=== PATIENT | female | born 1960 | race African-American/Black ===

== ENCOUNTER 2019-03-06 11:37 | Inpatient (IN) | payer OTHER ==
[2019-03-06 12:31] VITALS: BMI 30.9
--- NOTE | 2019-03-06 13:45 | HP ---
CIWA Score Nausea/Vomitin-Int. Nausea w/Dry Heave Muscle Tremors: 2 Anxiety: 5 Agitation: 2 Paroxysmal Sweats: 3 Orientation: 0-Oriented Tacttile Disturbances: 2-Mild Itch/Numbness/Burn Auditory Disturbances: 0-None Visual Disturbances: 1-Very Mild Sensitivity Headache: 2-Mild CIWA-Ar Total Score: 21 - Admission Criteria OASAS Guidelines: Admission for Medically Managed Detox: Requires at least one of the followin. CIWA greater than 12 2. Seizures within the past 24 hours 3. Delirium tremens within the past 24 hours 4. Hallucinations within the past 24 hours 5. Acute intervention needed for co occurring medical disorder 6. Acute intervention needed for co occurring psychiatric disorder 7. Severe withdrawal that cannot be handled at a lower level of care (continued vomiting, continued diarrhea, abnormal vital signs) requiring intravenous medication and/or fluids 8. Admitting History and Physical - Admission Chief Complaint: "I want to stop drinking and stop smoking." History of Present Illness: 58 year old female with history of alcohol dependence and crack use disorder, nicotine dependence with withdrawals. She is using 1 litre of vodka per day and beers , last drank this morning at 2: 30AM. 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 She uses marijuana at least $100 daily and last used this morning. She started smoking it at age 18. She uses crack/ccaine at age 29 last used 2 days ago and aout 2x/month. She also smokes ciggarettes at age [age] years old. She has tried heroin but last time use was 10 years ago. PMH: HTN< Asthma, MVP, Seasonal allergies. Psurg: CHolecystectomy, Umbilical Hernia repair, foot surgery, many miscarriages with D&C Psych: Bipolar, Schizophrenia. Zyprexa ambien, lamictal, gabapentin but not consistently. Patient resides in housing in the [place]. History Source: Patient Limitations to Obtaining History: No Limitations - Past Medical History ...: No - Past Surgical History Past Surgical History: Yes: Cholecystectomy, Hernia Repair - Advance Directives Advance Directives: No: Living Will, Health Care Proxy, DNR - Smoking History Smoking history: Former smoker Have you smoked in the past 12 months: No If you are a former smoker, when did you quit?: 2017 - Alcohol/Substance Use Hx Alcohol Use: Yes (1 litre of vodka) History of Substance Use: reports: Marijuana - Social History Usual Living Arrangement: Yes: Alone Do you think of yourself as: Straight/Heterosexual ADL: Independent Occupation: unemployed disabled History of Recent Travel: No Admission ROS [facility] Allergies/Adverse Reactions: Allergies Allergy/AdvReac Type Severity Reaction Status Date / Time apple Allergy Severe Verified 03/06/19 12:35 Penicillins Allergy Severe Verified 03/06/19 12:35 Exam Limitations: No Limitations - Ebola screening Have you traveled outside of the country in the last 21 days: No Have you had contact with anyone from an Ebola affected area: No Have you been sick,other than usual withdrawal symptoms: No Do you have a fever: No - Review of Systems Constitutional: Chills EENT: reports: No Symptoms Reported Respiratory: reports: No Symptoms reported Cardiac: reports: No Symptoms Reported GI: reports: No Symptoms Reported : reports: No Symptoms Reported Musculoskeletal: reports: No Symptoms Reported Integumentary: reports: No Symptoms Reported Neuro: reports: Headache Endocrine: reports: No Symptoms Reported Hematology: reports: No Symptoms Reported Psychiatric: reports: Judgement Intact, Mood/Affect Appropiate, Orientated x3 Other Systems: Reviewed and Negative Patient History - Patient Medical History Hx Asthma: Yes Hx Chronic Obstructive Pulmonary Disease (COPD): No Hx Cardiac Disorders: No Hx Hypertension: Yes (on meds.) Hx Seizures: No Hx Diabetes: No Hx Gastrointestinal Disorders: No Hx Genitourinary Disorders: No Hx Sexually Transmitted Disorders: Yes Hx Renal Disease (ESRD): No Hx Depression: Yes Hx Suicide Attempt: Yes (Tried to cut wrists in 2016) Hx Schizophrenia: No - Patient Surgical History Past Surgical History: No - PPD History Previous Implant?: Yes Documented Results: Negative w/o proof Implanted On Prior [facility] Admission?: No - Reproductive History Patient : No - Smoking Cessation Smoking history: Former smoker Have you smoked in the past 12 months: No If you are a former smoker, when did you quit?: 2017 Hx Chewing Tobacco Use: No Initiated information on smoking cessation: No - Substances abused Alcohol Substance route: Oral Frequency: Daily Amount used: 1 liter vodka/ 6pk and up of beer Age of first use: 18 Date of last use: 03/06/19 Marijuana/Hashish Substance route: Inhalation Frequency: Daily Amount used: 10 blunts Age of first use: 18 Date of last use: 03/06/19 Admission Physical Exam [facility] - Vital Signs Vital Signs: Vital Signs - 24 hr 03/06/19 03/06/19 12:23 12:35 Temperature 98.6 F 98.6 F Pulse Rate 91 H 91 H Respiratory 18 18 Rate Blood Pressure 138/89 138/89 - Physical General Appearance: Yes: No Apparent Distress, Nourished, Appropriately Dressed HEENTM: Yes: EOMI, Hearing grossly Normal, Normal ENT Inspection, Normocephalic , Normal Voice, YADIRA, Pharynx Normal, Tm's normal (edentulous upper jaw and also stye over right upper lid) Respiratory: Yes: Chest Non-Tender, Lungs Clear, Normal Breath Sounds, No Respiratory Distress, No Accessory Muscle Use Neck: Yes: No masses,lesions,Nodules, Supple Breast: Yes: Breast Exam Deferred Cardiology: Yes: Regular Rhythm, S1, S2, Tachycardia Abdominal: Yes: Non Tender, Flat, Increased Bowel Sounds Genitourinary: Yes: Within Normal Limits Back: Yes: Normal Inspection Musculoskeletal: Yes: full range of Motion, Gait Steady, Pelvis Stable Extremities: Yes: Normal Capillary Refill, Normal Inspection, Normal Range of Motion, Non-Tender Neurological: Yes: volunteer patient representative II-XII NML intact, Fully Oriented, Alert, Motor Strength 5/5, Normal Mood/Affect, Normal Response Integumentary: Yes: Normal Color, Warm, Rash (intertrigenous under breast, petechial.) Lymphatic: Yes: Within Normal Limits - Diagnostic (1) Alcohol dependence with withdrawal Current Visit: Yes Status: Acute (2) Varicose veins of bilateral lower extremities with other complications Current Visit: Yes Status: Acute (3) Hypertension Current Visit: Yes Status: Acute (4) Rash Current Visit: Yes Status: Acute (5) Asthma Current Visit: Yes Status: Acute (6) Mitral valve prolapse Current Visit: Yes Status: Acute (7) Environmental allergies Current Visit: Yes Status: Acute Cleared for Admission [facility] - Detox or Rehab [facility] Level of Care: Medically Managed Detox Regimen/Protocol: Librium Claeared for Rehab Admission: No Screened but not Admitted - Documentation of Visit Screened but not Admitted: No Breathalyzer - Breathalyzer Breathalyzer: 0 (last drink was early this morning) Urine Drug Screen - Test Device Lot number: [id number] Expiration date: 12/30/20 - Control Is test valid?: Yes - Results Drug screen NEGATIVE: No Urine drug screen results: THC-Marijuana Inpatient Rehab Admission - Rehab Decision to Admit Inpatient rehab admission?: No
[2019-03-06] MEDS ORDERED: MAG HYDROX/AL HYDROX/SIMETH 30 ML UNIT-DOSE CUP PO PRN (13:55)
[2019-03-06] MEDS ORDERED: MAGNESIUM HYDROX 2400MG/30ML ORAL SUSPENSION 30 ML CUP PO PRN (13:55)
[2019-03-06] MEDS ORDERED: chlordiazePOXIDE HCL 25 MG CAPSULE PO PRN (13:55)
[2019-03-06] MEDS ORDERED: IBUPROFEN 400 MG TABLET (FP) PO PRN (13:55)
[2019-03-06] MEDS ORDERED: MENTHOL/PHENOL 1 EACH UD MM PRN (13:55)
[2019-03-06] MEDS ORDERED: MAGNESIUM CITRATE 300 ML BOTTLE PO PRN (13:55)
[2019-03-06] MEDS ORDERED: ACETAMINOPHEN 325 MG TABLET (FP) PO PRN ×2 (13:55)
[2019-03-06] MEDS ORDERED: MELATONIN 5 MG TABLETS PO PRN (13:55)
[2019-03-06] MEDS ORDERED: ALBUTEROL SO4 8 GM HFA INHALER IH PRN (13:57)
[2019-03-06] MEDS ORDERED: BUDESONIDE/FORMETEROL FUMARATE 80/4.5 mcg INHALER IH SCH (14:00)
[2019-03-06] MEDS ORDERED: COLLOIDAL OATMEAL 1 BAR EACH TP PRN (14:03)
[2019-03-06] MEDS: GABAPENTIN 100 MG CAPSULE PO SCH ×2 (15:27→22:10)
[2019-03-06] MEDS: ASPIRIN 81 MG CHEWABLE TABLETS PO SCH (15:27)
[2019-03-06] MEDS: PANTOPRAZOLE 20 MG TABLET PO SCH (15:28)
[2019-03-06] MEDS: ARTIFICIAL TEARS (POLYVINYL ALCOHOL) OPTH DROPS OS SCH ×3 (15:28→22:13)
[2019-03-06] MEDS: amLODIPine BESYLATE 10 MG TABLET (FP) PO SCH (15:28)
[2019-03-06] MEDS: LORATADINE 10 MG TABLET PO SCH (15:28)
[2019-03-06] MEDS: BISMUTH SUBSALICYLATE 262 MG/15 ML BTL PO PRN (15:38)
[2019-03-06] MEDS: lamoTRIgine 100 MG TABLET PO SCH (16:07)
[2019-03-06] MEDS: EMTRICITABINE 200MG/TENOFOVIR 300MG PO SCH (16:07)
[2019-03-06] MEDS: chlordiazePOXIDE HCL 25 MG CAPSULE PO SCH ×2 (18:25→22:11)
[2019-03-06] MEDS: VITAMINS A AND D TOPICAL OINTMENT 60 GM TUBE TP SCH (18:25)
[2019-03-06] MEDS: OLANZapine 7.5 MG TABLET PO SCH (22:11)
[2019-03-06] MEDS: THIAMINE HCL 100 MG TABLET (FP) PO SCH (22:11)
[2019-03-06] MEDS: MONTELUKAST NA 10 MG TABLET PO SCH (22:11)
[2019-03-06] MEDS: CLOTRIMAZOLE 1% CREAM 15 GM TUBE TP SCH (22:13)
[2019-03-06] MEDS: BUDESONIDE/FORMETEROL FUMARATE 80/4.5 mcg INHALER IH SCH (22:13)
[2019-03-07] MEDS: VITAMINS A AND D TOPICAL OINTMENT 60 GM TUBE TP SCH ×4 (03:08→17:45)
[2019-03-07] MEDS: GABAPENTIN 100 MG CAPSULE PO SCH ×3 (06:48→21:15)
[2019-03-07] MEDS: chlordiazePOXIDE HCL 25 MG CAPSULE PO SCH ×4 (06:48→22:27)
[2019-03-07 10:16] LABS: HEMATOCRIT 37.7 % (32.4-45.2); MCH 35.6 pg (25.7-33.7); MCHC 34.4 g/dl (32.0-36.0); MEAN CELL VOLUME 103.6 fl (80-96); MEAN PLT VOLUME 8.5 fl (7.5-11.1); PLATELET COUNT 241 K/MM3 (134-434); RBC 3.64 M/mm3 (3.60-5.2); RDW 12.7 % (11.6-15.6); WHITE BLOOD COUNT 4.4 K/mm3 (4.0-10.0)
[2019-03-07 10:23] LABS: ALBUMIN 3.2 g/dl (3.4-5.0); BILIRUBIN,TOTAL 0.5 mg/dL (0.2-1); BLOOD UREA NITROGEN 7.7 mg/dL (7-18); CALCIUM 9.1 mg/dL (8.5-10.1); CREATININE 0.7 mg/dL (0.55-1.3); POTASSIUM 3.7 mmol/L (3.5-5.1); TOT PROT 6.9 g/dl (6.4-8.2)
[2019-03-07] MEDS: EMTRICITABINE 200MG/TENOFOVIR 300MG PO SCH (10:30)
[2019-03-07] MEDS: PANTOPRAZOLE 20 MG TABLET PO SCH (10:30)
[2019-03-07] MEDS: BUDESONIDE/FORMETEROL FUMARATE 80/4.5 mcg INHALER IH SCH ×2 (10:31→21:16)
[2019-03-07] MEDS: ASPIRIN 81 MG CHEWABLE TABLETS PO SCH (10:31)
[2019-03-07] MEDS: LORATADINE 10 MG TABLET PO SCH (10:31)
[2019-03-07] MEDS: amLODIPine BESYLATE 10 MG TABLET (FP) PO SCH (10:31)
[2019-03-07] MEDS: ARTIFICIAL TEARS (POLYVINYL ALCOHOL) OPTH DROPS OS SCH ×4 (10:32→21:20)
[2019-03-07] MEDS: CLOTRIMAZOLE 1% CREAM 15 GM TUBE TP SCH ×2 (10:32→21:21)
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
[2019-03-07] MEDS: PRENATAL VITAMINS W/ FOLIC ACID TABLET (FP) PO SCH (10:43)
--- NOTE | 2019-03-07 12:42 | PN ---
S CIWA - CIWA Score Nausea/Vomitin-No Nausea/No Vomiting Muscle Tremors: 3 Anxiety: 3 Agitation: 3 Paroxysmal Sweats: 3 Orientation: 0-Oriented Tacttile Disturbances: 0-None Auditory Disturbances: 0-None Visual Disturbances: 0-None Headache: 0-None Present CIWA-Ar Total Score: 12 [facility] Progress Note (SOAP) Subjective: sweats tired interrupted sleep Objective: 03/07/19 12:41 Vital Signs Temperature 97.7 F 03/07/19 10:01 Pulse Rate 70 03/07/19 10:01 Respiratory Rate 18 03/07/19 10:01 Blood Pressure 128/92 03/07/19 10:01 O2 Sat by Pulse Oximetry (%) Laboratory Tests 03/07/19 03/07/19 03/07/19 08:30 08:30 08:30 WBC 4.4 RBC 3.64 Hgb 13.0 Hct 37.7 MCV 103.6 H MCH 35.6 H MCHC 34.4 RDW 12.7 Plt Count 241 MPV 8.5 Sodium 142 Potassium 3.7 Chloride 108 H Carbon Dioxide 29 Anion Gap 5 L BUN 7.7 Creatinine 0.7 Est GFR (CKD-EPI)AfAm 112.26 Est GFR (CKD-EPI)NonAf 96.86 Random Glucose 91 Calcium 9.1 Total Bilirubin 0.5 AST 35 ALT 44 Alkaline Phosphatase 71 Total Protein 6.9 Albumin 3.2 L HIV 1&2 Antibody Screen Negative HIV P24 Antigen Negative aaox3 ambulating no acute distress Assessment: 03/07/19 12:41 withdrawal sx Plan: continue detox increase fluids
[2019-03-07] MEDS: lamoTRIgine 100 MG TABLET PO SCH (14:29)
[2019-03-07] MEDS: THIAMINE HCL 100 MG TABLET (FP) PO SCH (21:15)
[2019-03-07] MEDS: MONTELUKAST NA 10 MG TABLET PO SCH (21:16)
[2019-03-07] MEDS: OLANZapine 7.5 MG TABLET PO SCH (22:25)
[2019-03-07] MEDS: METHOCARBAMOL 500 MG TABLET PO PRN (22:25)
[2019-03-08] MEDS: VITAMINS A AND D TOPICAL OINTMENT 60 GM TUBE TP SCH ×4 (00:05→21:43)
[2019-03-08] MEDS: chlordiazePOXIDE HCL 25 MG CAPSULE PO SCH ×4 (06:39→22:13)
[2019-03-08] MEDS: GABAPENTIN 100 MG CAPSULE PO SCH ×3 (06:39→21:45)
[2019-03-08] MEDS: ASPIRIN 81 MG CHEWABLE TABLETS PO SCH (10:34)
[2019-03-08] MEDS: ARTIFICIAL TEARS (POLYVINYL ALCOHOL) OPTH DROPS OS SCH ×4 (10:34→22:13)
[2019-03-08] MEDS: LORATADINE 10 MG TABLET PO SCH (10:34)
[2019-03-08] MEDS: amLODIPine BESYLATE 10 MG TABLET (FP) PO SCH (10:34)
[2019-03-08] MEDS: PANTOPRAZOLE 20 MG TABLET PO SCH (10:34)
[2019-03-08] MEDS: PRENATAL VITAMINS W/ FOLIC ACID TABLET (FP) PO SCH (10:34)
[2019-03-08] MEDS: BUDESONIDE/FORMETEROL FUMARATE 80/4.5 mcg INHALER IH SCH ×2 (10:35→21:45)
[2019-03-08] MEDS: CLOTRIMAZOLE 1% CREAM 15 GM TUBE TP SCH ×2 (10:35→21:44)
--- NOTE | 2019-03-08 17:32 | PN ---
[facility] CIWA - CIWA Score Nausea/Vomitin-No Nausea/No Vomiting Muscle Tremors: 5 Anxiety: 4-Mod. Anxious/Guarded Agitation: 3 Paroxysmal Sweats: 1-Minimal Palms Moist Orientation: 0-Oriented Tacttile Disturbances: 0-None Auditory Disturbances: 0-None Visual Disturbances: 0-None Headache: 0-None Present CIWA-Ar Total Score: 13 BHS Progress Note (SOAP) Subjective: c/o anxiety, tremors and alcohol cravings. Objective: 03/08/19 17:30 Vital Signs - 24 hr 03/07/19 03/07/19 03/08/19 17:53 21:48 00:30 Temperature 98.4 F 97.9 F Pulse Rate 86 79 Respiratory 18 18 18 Rate Blood Pressure 117/78 134/72 03/08/19 03/08/19 03/08/19 03:30 07:21 09:38 Temperature 97.9 F 98.4 F Pulse Rate 71 66 Respiratory 18 16 16 Rate Blood Pressure 125/70 117/78 03/08/19 13:45 Temperature 98.2 F Pulse Rate 102 H Respiratory 16 Rate Blood Pressure 129/77 Laboratory Tests 03/07/19 03/07/19 03/07/19 08:30 08:30 08:30 WBC 4.4 RBC 3.64 Hgb 13.0 Hct 37.7 MCV 103.6 H MCH 35.6 H MCHC 34.4 RDW 12.7 Plt Count 241 MPV 8.5 Sodium 142 Potassium 3.7 Chloride 108 H Carbon Dioxide 29 Anion Gap 5 L BUN 7.7 Creatinine 0.7 Est GFR (CKD-EPI)AfAm 112.26 Est GFR (CKD-EPI)NonAf 96.86 Random Glucose 91 Calcium 9.1 Total Bilirubin 0.5 AST 35 ALT 44 Alkaline Phosphatase 71 Total Protein 6.9 Albumin 3.2 L RPR Titer HIV 1&2 Antibody Screen Negative HIV P24 Antigen Negative 03/07/19 08:30 WBC RBC Hgb Hct MCV MCH MCHC RDW Plt Count MPV Sodium Potassium Chloride Carbon Dioxide Anion Gap BUN Creatinine Est GFR (CKD-EPI)AfAm Est GFR (CKD-EPI)NonAf Random Glucose Calcium Total Bilirubin AST ALT Alkaline Phosphatase Total Protein Albumin RPR Titer Nonreactive HIV 1&2 Antibody Screen HIV P24 Antigen Assessment: 03/08/19 17:31 MUNIRA w/s Plan: cont detox maintain safety increase po fluids
[2019-03-08] MEDS: BISMUTH SUBSALICYLATE 262 MG/15 ML BTL PO PRN (18:58)
[2019-03-08] MEDS: MONTELUKAST NA 10 MG TABLET PO SCH (21:45)
[2019-03-08] MEDS: THIAMINE HCL 100 MG TABLET (FP) PO SCH (21:45)
[2019-03-08] MEDS: hydrOXYzine PAMOATE 25 MG CAPSULE (FP) PO PRN (21:46)
[2019-03-08] MEDS: METHOCARBAMOL 500 MG TABLET PO PRN (21:46)
[2019-03-09] MEDS ORDERED: chlordiazePOXIDE HCL 10 MG CAPSULE PO PRN
[2019-03-09] MEDS: VITAMINS A AND D TOPICAL OINTMENT 60 GM TUBE TP SCH ×4 (00:10→17:34)
[2019-03-09] MEDS: chlordiazePOXIDE HCL 10 MG CAPSULE PO SCH ×4 (06:46→22:22)
[2019-03-09] MEDS: GABAPENTIN 100 MG CAPSULE PO SCH ×3 (06:48→22:22)
[2019-03-09] MEDS: ARTIFICIAL TEARS (POLYVINYL ALCOHOL) OPTH DROPS OS SCH ×4 (10:15→22:21)
[2019-03-09] MEDS: BUDESONIDE/FORMETEROL FUMARATE 80/4.5 mcg INHALER IH SCH ×2 (10:15→22:22)
[2019-03-09] MEDS: LORATADINE 10 MG TABLET PO SCH (10:16)
[2019-03-09] MEDS: ASPIRIN 81 MG CHEWABLE TABLETS PO SCH (10:16)
[2019-03-09] MEDS: PANTOPRAZOLE 20 MG TABLET PO SCH (10:16)
[2019-03-09] MEDS: amLODIPine BESYLATE 10 MG TABLET (FP) PO SCH (10:16)
[2019-03-09] MEDS: PRENATAL VITAMINS W/ FOLIC ACID TABLET (FP) PO SCH (10:17)
[2019-03-09] MEDS: CLOTRIMAZOLE 1% CREAM 15 GM TUBE TP SCH (10:20)
--- NOTE | 2019-03-09 12:27 | PN ---
S Progress Note Note: Psychiatric nurse practitioner note: Call received in reference to patient not receiving zyprexa 7.5mg last night. Patient seen by Dr. Mireles. Dr. Mireles's note read and appreciated. Will order Zyprexa 7.5 mg HS.
--- NOTE | 2019-03-09 21:23 | PN ---
[facility] CIWA - CIWA Score Nausea/Vomitin-No Nausea/No Vomiting Muscle Tremors: None Anxiety: 3 Agitation: 2 Paroxysmal Sweats: No Perspiration Orientation: 1-Uncertain about Date Tacttile Disturbances: 0-None Auditory Disturbances: 0-None Visual Disturbances: 0-None Headache: 2-Mild CIWA-Ar Total Score: 8 BHS Progress Note (SOAP) Subjective: PATIENT ADMITTED FOR ETOH WITHDRAWAL SX C/O REDNESS TO RIGHT EYE, ANXIETY, FEELING RESTLESS, FORGETFUL WITH DATE - THOUGHT IT WAS SUNDAY- ORIENTED TO NAME AND PLACE Objective: 03/09/19 21:20 Laboratory Tests 03/07/19 03/07/19 03/07/19 08:30 08:30 08:30 WBC 4.4 RBC 3.64 Hgb 13.0 Hct 37.7 MCV 103.6 H MCH 35.6 H MCHC 34.4 RDW 12.7 Plt Count 241 MPV 8.5 Sodium 142 Potassium 3.7 Chloride 108 H Carbon Dioxide 29 Anion Gap 5 L BUN 7.7 Creatinine 0.7 Est GFR (CKD-EPI)AfAm 112.26 Est GFR (CKD-EPI)NonAf 96.86 Random Glucose 91 Calcium 9.1 Total Bilirubin 0.5 AST 35 ALT 44 Alkaline Phosphatase 71 Total Protein 6.9 Albumin 3.2 L RPR Titer HIV 1&2 Antibody Screen Negative HIV P24 Antigen Negative 03/07/19 08:30 WBC RBC Hgb Hct MCV MCH MCHC RDW Plt Count MPV Sodium Potassium Chloride Carbon Dioxide Anion Gap BUN Creatinine Est GFR (CKD-EPI)AfAm Est GFR (CKD-EPI)NonAf Random Glucose Calcium Total Bilirubin AST ALT Alkaline Phosphatase Total Protein Albumin RPR Titer Nonreactive HIV 1&2 Antibody Screen HIV P24 Antigen Vital Signs Temperature 98.2 F 03/09/19 18:46 Pulse Rate 85 03/09/19 18:46 Respiratory Rate 18 03/09/19 18:46 Blood Pressure 125/72 03/09/19 18:46 O2 Sat by Pulse Oximetry (%) PE ALERT AND ORIENTED X 2 SKIN WARM AND DRY +PERRLA, RIGHT LOWER EYE LID + INFLAMED STYE CAR S1S2 RESP CTA BL EXT FULL ROM, AMB AD ERNESTO ANXIOUS, RESTLESS Assessment: 03/09/19 21:22 ETOH WITHDRAWAL SX Plan: CONTINUE DETOX-TO COMPLETE TOMORROW EVENING POLY/TRIM TO OD X 5 DAYS ORAL FLUIDS ENCOURAGED MONITOR
[2019-03-09] MEDS: THIAMINE HCL 100 MG TABLET (FP) PO SCH (22:22)
[2019-03-09] MEDS: MONTELUKAST NA 10 MG TABLET PO SCH (22:22)
[2019-03-09] MEDS: OLANZapine 7.5 MG TABLET PO SCH (22:23)
[2019-03-10] MEDS: BACITRACIN/POLYMYXIN OPH OINT 3.5 GM TUBE OD SCH ×3 (00:14→14:57)
[2019-03-10] MEDS: VITAMINS A AND D TOPICAL OINTMENT 60 GM TUBE TP SCH ×4 (01:43→17:19)
[2019-03-10] MEDS: chlordiazePOXIDE HCL 10 MG CAPSULE PO SCH ×2 (06:17→17:18)
[2019-03-10] MEDS: GABAPENTIN 100 MG CAPSULE PO SCH ×3 (06:17→21:57)
[2019-03-10] MEDS: BUDESONIDE/FORMETEROL FUMARATE 80/4.5 mcg INHALER IH SCH ×2 (10:19→21:58)
[2019-03-10] MEDS: amLODIPine BESYLATE 10 MG TABLET (FP) PO SCH (10:20)
[2019-03-10] MEDS: PRENATAL VITAMINS W/ FOLIC ACID TABLET (FP) PO SCH (10:20)
[2019-03-10] MEDS: PANTOPRAZOLE 20 MG TABLET PO SCH (10:20)
[2019-03-10] MEDS: ASPIRIN 81 MG CHEWABLE TABLETS PO SCH (10:20)
[2019-03-10] MEDS: LORATADINE 10 MG TABLET PO SCH (10:20)
[2019-03-10] MEDS: ARTIFICIAL TEARS (POLYVINYL ALCOHOL) OPTH DROPS OS SCH ×4 (10:21→21:58)
[2019-03-10] MEDS: TRIAMCINOLONE ACET 0.1% OINT 15 GM TUBE TP SCH (11:54)
--- NOTE | 2019-03-10 13:23 | PN ---
S CIWA - CIWA Score Nausea/Vomitin-No Nausea/No Vomiting Muscle Tremors: 1-None Visible, but [place] Anxiety: 1-Mildly Anxious Agitation: 2 Paroxysmal Sweats: 1-Minimal Palms Moist Orientation: 0-Oriented Tacttile Disturbances: 0-None Auditory Disturbances: 0-None Visual Disturbances: 0-None Headache: 0-None Present CIWA-Ar Total Score: 5 BHS Progress Note (SOAP) Subjective: rash to eyelids I need my vaginal lubrication and steroid cream for my prolapse uterine otherwise i feel better Objective: 03/10/19 13:21 Vital Signs Temperature 97.7 F 03/10/19 09:28 Pulse Rate 86 03/10/19 09:28 Respiratory Rate 18 03/10/19 09:28 Blood Pressure 128/91 03/10/19 09:28 O2 Sat by Pulse Oximetry (%) aaox3 ambulating no acute distress Assessment: 03/10/19 13:22 mild withdrawals pt was allowed to go into her property and show me the medication she is required to use for her prolapse uterine to prevent dryness and decrease swelling. will order the cream and jelly as per pt request Plan: continue detox cream and jelly ordered d/c in am
[2019-03-10] MEDS: HYDROCORTISONE 1% TOPICAL CREAM 30 GM TUBE TP SCH ×2 (14:56→21:57)
[2019-03-10] MEDS: THIAMINE HCL 100 MG TABLET (FP) PO SCH (21:57)
[2019-03-10] MEDS: OLANZapine 7.5 MG TABLET PO SCH (21:57)
[2019-03-10] MEDS: MONTELUKAST NA 10 MG TABLET PO SCH (21:57)
[2019-03-10] MEDS: hydrOXYzine PAMOATE 25 MG CAPSULE (FP) PO PRN (22:03)
[2019-03-11] MEDS: VITAMINS A AND D TOPICAL OINTMENT 60 GM TUBE TP SCH ×2 (01:13→05:57)
[2019-03-11] MEDS ORDERED: chlordiazePOXIDE HCL 10 MG CAPSULE PO ONE (05:00)
[2019-03-11] MEDS: GABAPENTIN 100 MG CAPSULE PO SCH (05:56)
--- NOTE | 2019-03-11 09:03 | DS ---
[facility] Detox Discharge Summary Admission Date: 03/06/19 Discharge Date: 03/11/19 - History Present History: Alcohol Dependence, Cannabis Dependence, Cocaine Dependence - Physical Exam Results Vital Signs: Vital Signs Temperature 97.7 F 03/11/19 06:24 Pulse Rate 90 03/11/19 06:24 Respiratory Rate 18 03/11/19 06:24 Blood Pressure 112/77 03/11/19 06:24 O2 Sat by Pulse Oximetry (%) Pertinent Admission Physical Exam Findings: Vital Signs Temperature 97.7 F 03/11/19 06:24 Pulse Rate 90 03/11/19 06:24 Respiratory Rate 18 03/11/19 06:24 Blood Pressure 112/77 03/11/19 06:24 O2 Sat by Pulse Oximetry (%) Laboratory Tests 03/07/19 03/07/19 03/07/19 08:30 08:30 08:30 WBC 4.4 RBC 3.64 Hgb 13.0 Hct 37.7 MCV 103.6 H MCH 35.6 H MCHC 34.4 RDW 12.7 Plt Count 241 MPV 8.5 Sodium 142 Potassium 3.7 Chloride 108 H Carbon Dioxide 29 Anion Gap 5 L BUN 7.7 Creatinine 0.7 Est GFR (CKD-EPI)AfAm 112.26 Est GFR (CKD-EPI)NonAf 96.86 Random Glucose 91 Calcium 9.1 Total Bilirubin 0.5 AST 35 ALT 44 Alkaline Phosphatase 71 Total Protein 6.9 Albumin 3.2 L RPR Titer HIV 1&2 Antibody Screen Negative HIV P24 Antigen Negative 03/07/19 08:30 WBC RBC Hgb Hct MCV MCH MCHC RDW Plt Count MPV Sodium Potassium Chloride Carbon Dioxide Anion Gap BUN Creatinine Est GFR (CKD-EPI)AfAm Est GFR (CKD-EPI)NonAf Random Glucose Calcium Total Bilirubin AST ALT Alkaline Phosphatase Total Protein Albumin RPR Titer Nonreactive HIV 1&2 Antibody Screen HIV P24 Antigen aaox3 ambulating no acute distress - Treatment Hospital Course: Detox Protocol Followed, Detoxed Safely, Responded well, Discharged Condition Good, Rehab Referral Accepted - Medication Discharge Medications: Ambulatory Orders Albuterol Sulfate Inhaler - [Ventolin Hfa Inhaler -] 2 inh PO Q4H PRN 03/06/19 Amlodipine Besylate [Norvasc -] 10 mg PO DAILY 03/06/19 Aspirin [ASA -] 81 mg PO DAILY 03/06/19 Budesonide/Formeterol Fumarate [SYMBICORT 80/4.5mcg -] 1 inh PO BID 03/06/19 Ergocalciferol [Vitamin D2] 50,000 unit PO Q7D@1000 03/06/19 Gabapentin [Neurontin -] 100 mg PO Q8H 03/06/19 Lamotrigine [Lamictal -] 100 mg PO DAILY 03/06/19 Montelukast Na [Singulair -] 10 mg PO HS 03/06/19 Multivitamin [One-Daily Multi-Vitamin] 1 each PO DAILY 03/06/19 Olanzapine [Zyprexa -] 7.5 mg PO HS 03/06/19 Polyvinyl Alcohol [Artificial Tears] 1 drop OS QID 03/06/19 Ranitidine HCl 150 mg PO DAILY 03/06/19 - Diagnosis (1) Alcohol dependence with withdrawal Current Visit: Yes Status: Chronic Qualifiers: Complication of substance-induced condition: uncomplicated Qualified Code(s ): F10.230 - Alcohol dependence with withdrawal, uncomplicated (2) Cannabis dependence Current Visit: Yes Status: Chronic (3) Environmental allergies Current Visit: Yes Status: Suspected (4) Mitral valve prolapse Current Visit: Yes Status: Acute (5) Rash Current Visit: Yes Status: Acute (6) Substance induced mood disorder Current Visit: Yes Status: Acute (7) Substance-induced sleep disorder Current Visit: Yes Status: Acute (8) Varicose veins of bilateral lower extremities with other complications Current Visit: Yes Status: Acute (9) Asthma Current Visit: Yes Status: Chronic Qualifiers: Asthma severity: mild Asthma persistence: unspecified Asthma complication type: unspecified Qualified Code(s): J45.909 - Unspecified asthma , uncomplicated (10) Hypertension Current Visit: Yes Status: Chronic Qualifiers: Hypertension type: essential hypertension Qualified Code(s): I10 - Essential (primary) hypertension (11) Nicotine dependence Current Visit: Yes Status: Chronic Qualifiers: Nicotine product type: cigarettes Substance use status: uncomplicated Qualified Code(s): F17.210 - Nicotine dependence, cigarettes, uncomplicated (12) PTSD (post-traumatic stress disorder) Current Visit: Yes Status: Chronic (13) Schizoaffective disorder Current Visit: Yes Status: Chronic - AMA Did Patient Leave Against Medical Advice: No
[2019-03-11 09:48] VITALS: BP 111/82; PULSE 12; TEMP 98.1
[2019-03-11] MEDS: ARTIFICIAL TEARS (POLYVINYL ALCOHOL) OPTH DROPS OS SCH (10:14)
[2019-03-11] MEDS: ASPIRIN 81 MG CHEWABLE TABLETS PO SCH (10:16)
[2019-03-11] MEDS: PANTOPRAZOLE 20 MG TABLET PO SCH (10:16)
[2019-03-11] MEDS: TRIAMCINOLONE ACET 0.1% OINT 15 GM TUBE TP SCH (10:16)
[2019-03-11] MEDS: LORATADINE 10 MG TABLET PO SCH (10:17)
[2019-03-11] MEDS: HYDROCORTISONE 1% TOPICAL CREAM 30 GM TUBE TP SCH (10:17)
[2019-03-11] MEDS: amLODIPine BESYLATE 10 MG TABLET (FP) PO SCH (10:17)
[2019-03-11] MEDS: BUDESONIDE/FORMETEROL FUMARATE 80/4.5 mcg INHALER IH SCH (10:17)
[2019-03-11] MEDS: PRENATAL VITAMINS W/ FOLIC ACID TABLET (FP) PO SCH (10:17)
[2019-03-13] MEDS ORDERED: ERGOCALCIFEROL (VIT D2) 50,000 UNIT (1.25 MG) CAPSULE PO SCH (10:00)
== END 2019-03-11 12:28 | disposition other institution (70) | DRG 775 ==
LOC: YASAS 11:37 → Y6N 14:06
PROVIDERS: ADMIT Allergy & Immunology; ATTEND Allergy & Immunology
PROC: HZ2ZZZZ Detoxification Services for Substance Abuse Treatment (ICD-10-PCS; principal; 2019-03-06)
DX: F10.230 Alcohol dependence with withdrawal, uncomplicated (principal); F12.20 Cannabis dependence, uncomplicated; F17.210 Nicotine dependence, cigarettes, uncomplicated; F19.24 Other psychoactive substance dependence with psychoactive substance-induced mood disorder; F19.282 Other psychoactive substance dependence with psychoactive substance-induced sleep disorder; F43.10 Post-traumatic stress disorder, unspecified; F25.9 Schizoaffective disorder, unspecified; I10 Essential (primary) hypertension; I34.1 Nonrheumatic mitral (valve) prolapse; R21 Rash and other nonspecific skin eruption; J45.909 Unspecified asthma, uncomplicated; H00.013 Hordeolum externum right eye, unspecified eyelid; R00.0 Tachycardia, unspecified; I83.90 Asymptomatic varicose veins of unspecified lower extremity; Z62.810 Personal history of physical and sexual abuse in childhood; Z91.410 Personal history of adult physical and sexual abuse; Z88.0 Allergy status to penicillin; Z91.018 Allergy to other foods; Z91.5 Personal history of self-harm
CPT/HCPCS: 36415; 80053; 85027; 86593; 87389

== ENCOUNTER 2019-03-11 11:31 | Inpatient (IN) | payer OTHER ==
[2019-03-11] MEDS ORDERED: PNEUMOC 13-VAL CONJ-DIP CRM/PF 0.5 ML DISP.SYRIN IM ONE (12:50)
[2019-03-11] MEDS ORDERED: MAGNESIUM HYDROX 2400MG/30ML ORAL SUSPENSION 30 ML CUP PO PRN (14:02)
[2019-03-11] MEDS ORDERED: P-EPHED 60MG/TRIPROLIDI 2.5MG TABLET PO PRN (14:02)
[2019-03-11] MEDS ORDERED: MENTHOL/PHENOL 1 EACH UD MM PRN (14:02)
[2019-03-11] MEDS ORDERED: ACETAMINOPHEN 325 MG TABLET (FP) PO PRN (14:02)
[2019-03-11] MEDS ORDERED: guaiFENesin 200 MG/10 ML 10 ML UNIT-DOSE CUPS PO PRN (14:02)
[2019-03-11] MEDS ORDERED: MAG HYDROX/AL HYDROX/SIMETH 30 ML UNIT-DOSE CUP PO PRN (14:02)
[2019-03-11] MEDS ORDERED: MAGNESIUM CITRATE 300 ML BOTTLE PO PRN (14:02)
[2019-03-11] MEDS ORDERED: IBUPROFEN 400 MG TABLET (FP) PO PRN (14:02)
[2019-03-11] MEDS ORDERED: LOPERAMIDE HCL 2 MG CAPSULE PO PRN (14:02)
[2019-03-11] MEDS ORDERED: ALBUTEROL SO4 HFA INHALER IH PRN (14:03)
--- NOTE | 2019-03-11 14:07 | HP ---
[facility] Rehab Assess/Revision - Admission History Admitted to Rehab from: [facility] Date of Admission to Rehab: 03/11/2019 - Vital signs Vital Signs: Vital Signs Period Temp Pulse Resp BP Sys/Mejia Pulse Ox Last 24 Hr 98.1 F 99 18 117/80 - Findings Detox History & Physical reviewed: Yes Concur with findings: Yes Inpatient Rehab Admission - Rehab Decision to Admit Inpatient rehab admission?: Yes - Initial Determination Are CD services needed?: Yes Free of communicable disease: Yes Not in need of hospitalization: Yes - Rehab Admission Criteria Previous failed treatment: No Poor recovery environment: No Comorbidities: No Lacks judgement: No Patient is meeting Inpatient Rehab admission criteria:: Yes
[2019-03-11] MEDS: ARTIFICIAL TEARS (POLYVINYL ALCOHOL) OPTH DROPS OS SCH (17:08)
[2019-03-11] MEDS ORDERED: PT OWN MED DRAWER 7, Y5N ONE ×2 (17:08→17:13)
[2019-03-11] MEDS: METHOCARBAMOL 500 MG TABLET PO SCH (17:08)
--- NOTE | 2019-03-11 18:21 | CONSULT ---
Consultation: REQUESTING PROVIDER: Internal Medicine Service CONSULT REQUEST: We have been asked to medically evaluate this patient for vaginal bleeding and abdominal pain. HISTORY OF PRESENT ILLNESS: Pt is a 58 y/o F (5 spontaneous abortions, 1 planned) w/ PMH HTN, Asthma, numerous psychiatric illnesses, cervical prolapse who is in [facility] for rehab from EtOH abuse and now complains of vaginal bleeding and abdominal pain worsening over the last month. Now she states she is going through 5-6 pads daily. LMP was at age 50. Admits to nonradiating lower abdominal pain worse with attempts to urinate. She states she is drinking lots of water, but is having difficulty urinating. She last had sex in November and states it was painful and so she has avoided sex since then. She also admits to bleeding from her gums and dark colored stools. She states she went to see her doctor about her prolapse, which was "not so bad " in november. Unclear what workup was done at that time. REVIEW OF SYSTEMS: CONSTITUTIONAL: Absent: fever, chills, diaphoresis, generalized weakness, malaise, loss of appetite, weight change HEENT: Absent: rhinorrhea, nasal congestion, throat pain, throat swelling, difficulty swallowing, mouth swelling, ear pain, eye pain, visual changes CARDIOVASCULAR: Absent: chest pain, syncope, palpitations, irregular heart rate, lightheadedness , peripheral edema RESPIRATORY: Absent: cough, shortness of breath, dyspnea with exertion, orthopnea, wheezing, stridor, hemoptysis GASTROINTESTINAL:melena, Absent: abdominal pain, abdominal distension, nausea, vomiting, diarrhea, constipation, hematochezia GENITOURINARY: dysuria, frequency, hematuria, genital pain Absent: , urgency, hesitancy, flank pain MUSCULOSKELETAL: Absent: myalgia, arthralgia, joint swelling, back pain, neck pain SKIN: Absent: rash, itching, pallor HEMATOLOGIC/IMMUNOLOGIC: easy bleeding ( vaginal, gums, dark stool) Absent: , easy bruising, lymphadenopathy, frequent infections ENDOCRINE: Absent: unexplained weight gain, unexplained weight loss, heat intolerance, cold intolerance NEUROLOGIC: Absent: headache, focal weakness or paresthesias, dizziness, unsteady gait, seizure, mental status changes, bladder or bowel incontinence PSYCHIATRIC: anxiety, depression, bipolar, schizophrenia Absent: , suicidal or homicidal ideation, hallucinations. PHYSICAL EXAMINATION Vital Signs - 24 hr 03/11/19 12:51 Temperature 98.1 F Pulse Rate 99 H Respiratory 18 Rate Blood Pressure 117/80 Gen: Alert, cooperative, NAD HEENT: NCAT, PERRL, EOMI, poor dentition Neck: supple, no jvd, no thyromegally Chest: itchy papular rash extending under the left breast fold including the L parasternal area Cardio: rrr, normal s1s2 Pulm: cta b/l Abd: soft, tender to palpation Vaginal exam: prolapsed cervix with 2-3 small erythematous patches Ext: no edema Active Medications Generic Name Dose Route Start Last Admin Trade Name Freq PRN Reason Stop Dose Admin Acetaminophen 650 mg 03/11/19 14:02 Tylenol - PO Q4H PRN FEVER Al Hydroxide/Mg Hydroxide 30 ml 03/11/19 14:02 Mylanta Oral Suspension - PO Q6H PRN DYSPEPSIA Albuterol Sulfate 2 puff 03/11/19 14:03 Ventolin Hfa Inhaler - IH Q4H PRN ASTHMA Amlodipine Besylate 10 mg 03/12/19 10:00 Norvasc - PO DAILY [place] Artificial Tears 1 drop 03/11/19 18:00 03/11/19 17:08 Artificial Tears OS 1 drop QID [place] Administration Aspirin 81 mg 03/12/19 10:00 Asa - PO DAILY [facility] Budesonide/Formoterol Fumarate 2 puff 03/11/19 22:00 Symbicort 80/4.5mcg - IH BID [place] Emtricitabine/Tenofovir 1 tab 03/12/19 10:00 Truvada PO DAILY [facility] Ergocalciferol 50,000 unit 03/18/19 10:00 Drisdol - PO Th@1000 [place] Eucalyptus/Menthol/Phenol/Sorbitol 1 each 03/11/19 14:02 Cepastat Lozenge - MM Q4H PRN SORE THROAT Gabapentin 100 mg 03/11/19 22:00 Neurontin - PO TID [place] Guaifenesin 10 ml 03/11/19 14:02 Robitussin - PO Q6H PRN COUGH Hydroxyzine Pamoate 50 mg 03/11/19 14:02 Vistaril - PO Q4H PRN AGITATION Ibuprofen 400 mg 03/11/19 14:02 Motrin - PO Q6H PRN Pain Level 4-6 Loperamide HCl 4 mg 03/11/19 14:02 Imodium - PO Q6H PRN DIARRHEA Magnesium Citrate 300 ml 03/11/19 14:02 Citroma - PO Q48H PRN CONSTIPATION Magnesium Hydroxide 30 ml 03/11/19 14:02 Milk Of Magnesia - PO DAILY PRN CONSTIPATION Melatonin 5 mg 03/11/19 22:00 Melatonin PO HS PRN INSOMNIA Methocarbamol 500 mg 03/11/19 18:00 03/11/19 17:08 Robaxin - PO 500 mg QID SY[place]NEY Administration Montelukast Sodium 10 mg 03/11/19 22:00 Singulair - PO HS SY[place]NEY Olanzapine 2.5 mg 03/11/19 22:00 Zyprexa - PO HS [place] Pneumococcal Polyvalent Vaccine 0.5 ml 03/12/19 12:00 Pneumovax - IM 03/12/19 12:01 .ONCE ONE Multivit/Folic Acid/Iron 1 tab 03/12/19 10:00 Vitamins (Sjr) - PO DAILY [place] Pseudoephedrine/Triprolidine 1 combo 03/11/19 14:02 Actifed - PO TID PRN NASAL CONGESTION Thiamine HCl 100 mg 03/11/19 22:00 Vitamin B1 - PO HS SY[place]NEY Triamcinolone Acetonide 1 applic 03/12/19 10:00 Aristocort 0.1% Ointment - TP DAILY [facility] ASSESSMENT/PLAN: Pt is a 58 y/o F (5 spontaneous abortions, 1 planned) w/ PMH HTN, Asthma, numerous psychiatric illnesses, cervical prolapse who is in [facility] facility for rehab from EtOH abuse and now complains of vaginal bleeding and abdominal pain. Will transfer to [facility] ED for further care. Vaginal bleeding associated with dysmenorrhea and dyspareunia ? bleeding disorder Numerous spontaneous abortions ? antiphospholipid vs SLE ? GIB -complaining of dark colored stools Cervical prolapse Dispo: We will continue to follow the patient. Thank you for this consultative opportunity. Visit type - Emergency Visit Emergency Visit: No - New Patient This patient is new to me today: Yes Date on this admission: 03/11/19 - Critical Care Critical Care patient: No ATTENDING PHYSICIAN STATEMENT I saw and evaluated the patient. I reviewed the resident's note and discussed the case with the resident. I agree with the resident's findings and plan as documented. SUBJECTIVE: OBJECTIVE: ASSESSMENT AND PLAN:
[2019-03-11] MEDS ORDERED: BUDESONIDE/FORMETEROL FUMARATE 80/4.5 mcg INHALER IH SCH (22:00)
[2019-03-12] MEDS ORDERED: ESTROGENS,CONJUGATE VAGINAL CR 30 GM TUBE VG ONE (01:15)
[2019-03-12] MEDS: METHOCARBAMOL 500 MG TABLET PO SCH ×5 (01:37→21:39)
[2019-03-12] MEDS: THIAMINE HCL 100 MG TABLET (FP) PO SCH ×2 (01:38→21:38)
[2019-03-12] MEDS: ARTIFICIAL TEARS (POLYVINYL ALCOHOL) OPTH DROPS OS SCH ×5 (01:38→21:39)
[2019-03-12] MEDS: BUDESONIDE/FORMETEROL FUMARATE 80/4.5 mcg INHALER IH SCH ×3 (01:38→21:41)
[2019-03-12] MEDS: MONTELUKAST NA 10 MG TABLET PO SCH ×2 (01:41→21:39)
[2019-03-12] MEDS ORDERED: PT OWN MED DRAWER 7, Y5N ONE ×7 (01:41→21:42)
[2019-03-12] MEDS: GABAPENTIN 100 MG CAPSULE PO SCH ×4 (01:41→21:39)
[2019-03-12] MEDS: OLANZapine 2.5 MG TABLET PO SCH ×2 (01:45→21:42)
[2019-03-12] MEDS: hydrOXYzine PAMOATE 50 MG CAPSULE (FP) PO PRN (01:47)
[2019-03-12] MEDS: TRIAMCINOLONE ACET 0.1% OINT 15 GM TUBE TP SCH (09:19)
[2019-03-12] MEDS: ASPIRIN 81 MG CHEWABLE TABLETS PO SCH (09:20)
[2019-03-12] MEDS: PRENATAL VITAMINS W/ FOLIC ACID TABLET (FP) PO SCH (09:21)
[2019-03-12] MEDS: amLODIPine BESYLATE 10 MG TABLET (FP) PO SCH (09:21)
[2019-03-12] MEDS ORDERED: EMTRICITABINE 200MG/TENOFOVIR 300MG PO SCH (10:00)
[2019-03-12] MEDS ORDERED: PNEUMOCOCCAL 23 VACCINE 0.5 ML VIAL IM ONE (12:00)
[2019-03-12] MEDS ORDERED: diphenhydrAMINE HCL 25 MG CAPSULE (FP) PO PRN (16:16)
--- NOTE | 2019-03-12 16:20 | PN ---
[facility] Progress Note Note: pt c/o generalized body itch, no visible rash verbalized. Requests Benadryl for itch. Vital Signs - 24 hr 03/12/19 03/12/19 03/12/19 01:35 03:34 06:33 Temperature 98.2 F Pulse Rate 98 H Respiratory 18 18 18 Rate Blood Pressure 132/86 03/12/19 03/12/19 03/12/19 06:50 09:21 12:00 Temperature 98.1 F Pulse Rate 90 Respiratory 18 Rate Blood Pressure 115/75 Alert o x 3, nad oob ambulating with steady gait. Skin:intact;no redness or swelling. A/P Skin itch Benadryl 25 mg po BID prn for itch
[2019-03-12] MEDS: MELATONIN 5 MG TABLETS PO PRN (21:38)
[2019-03-12] MEDS: ESTROGENS,CONJUGATE VAGINAL CR 30 GM TUBE VG SCH (21:40)
[2019-03-13] MEDS: GABAPENTIN 100 MG CAPSULE PO SCH ×3 (07:29→21:44)
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
[2019-03-13] MEDS: TRIAMCINOLONE ACET 0.1% OINT 15 GM TUBE TP SCH (09:56)
[2019-03-13] MEDS: ARTIFICIAL TEARS (POLYVINYL ALCOHOL) OPTH DROPS OS SCH ×4 (09:56→21:47)
[2019-03-13] MEDS: PRENATAL VITAMINS W/ FOLIC ACID TABLET (FP) PO SCH (09:57)
[2019-03-13] MEDS: ASPIRIN 81 MG CHEWABLE TABLETS PO SCH (09:57)
[2019-03-13] MEDS: amLODIPine BESYLATE 10 MG TABLET (FP) PO SCH (09:57)
[2019-03-13] MEDS: BUDESONIDE/FORMETEROL FUMARATE 80/4.5 mcg INHALER IH SCH ×2 (09:58→21:45)
[2019-03-13] MEDS: METHOCARBAMOL 500 MG TABLET PO SCH ×4 (09:58→21:44)
[2019-03-13] MEDS: hydrOXYzine PAMOATE 50 MG CAPSULE (FP) PO PRN (10:00)
[2019-03-13 12:20] LABS: BASO % 0.4 % (0-2.0); EOS % 2.4 % (0-4.5); HEMATOCRIT 36.2 % (32.4-45.2); HEMOGLOBIN 12.3 GM/dL (10.7-15.3); LYMPH % 24.8 % (8-40); MCH 35.6 pg (25.7-33.7); MEAN CELL VOLUME 104.7 fl (80-96); MONO % 13.3 % (3.8-10.2); NEUT % 59.1 % (42.8-82.8); PLATELET COUNT 240 K/MM3 (134-434); RBC 3.46 M/mm3 (3.60-5.2); RDW 13.1 % (11.6-15.6); WHITE BLOOD COUNT 7.5 K/mm3 (4.0-10.0)
[2019-03-13] MEDS ORDERED: PT OWN MED DRAWER 7, Y5N ONE ×2 (12:41→15:15)
--- NOTE | 2019-03-13 15:06 | PN ---
[facility] Progress Note Note: Nurse request for CBC result review: Laboratory Tests 03/13/19 09:20 WBC 7.5 RBC 3.46 L Hgb 12.3 Hct 36.2 MCV 104.7 H MCH 35.6 H MCHC 34.0 RDW 13.1 Plt Count 240 MPV 9.0 Absolute Neuts (auto) 4.4 Neutrophils % 59.1 Lymphocytes % 24.8 Monocytes % 13.3 H Eosinophils % 2.4 Basophils % 0.4 Nucleated RBC % 0 Result Noted. To f/u with Dr. Lynch with result.
[2019-03-13] MEDS: THIAMINE HCL 100 MG TABLET (FP) PO SCH (21:44)
[2019-03-13] MEDS: ESTROGENS,CONJUGATE VAGINAL CR 30 GM TUBE VG SCH (21:44)
[2019-03-13] MEDS: MONTELUKAST NA 10 MG TABLET PO SCH (21:44)
[2019-03-13] MEDS: OLANZapine 7.5 MG TABLET PO SCH (21:46)
[2019-03-14] MEDS: GABAPENTIN 100 MG CAPSULE PO SCH ×3 (06:50→21:15)
[2019-03-14] MEDS ORDERED: PT OWN MED DRAWER 7, Y5N ONE ×5 (08:19→22:48)
[2019-03-14] MEDS: ARTIFICIAL TEARS (POLYVINYL ALCOHOL) OPTH DROPS OS SCH ×4 (09:47→21:15)
[2019-03-14] MEDS: amLODIPine BESYLATE 10 MG TABLET (FP) PO SCH (09:48)
[2019-03-14] MEDS: BUDESONIDE/FORMETEROL FUMARATE 80/4.5 mcg INHALER IH SCH ×2 (09:48→22:18)
[2019-03-14] MEDS: METHOCARBAMOL 500 MG TABLET PO SCH ×4 (09:48→21:15)
[2019-03-14] MEDS: PRENATAL VITAMINS W/ FOLIC ACID TABLET (FP) PO SCH (09:48)
[2019-03-14] MEDS: TRIAMCINOLONE ACET 0.1% OINT 15 GM TUBE TP SCH (09:48)
[2019-03-14] MEDS: ASPIRIN 81 MG CHEWABLE TABLETS PO SCH (09:48)
--- NOTE | 2019-03-14 15:16 | PN ---
S Progress Note Note: Patient seen for c/o stye right lower eyelid. Patient denies pain to eye and visual changes. Vital Signs Temperature 97.7 F 03/14/19 06:49 Pulse Rate 92 H 03/14/19 09:59 Respiratory Rate 18 03/14/19 06:49 Blood Pressure 109/75 03/14/19 09:59 O2 Sat by Pulse Oximetry (%) PE: +perrla, eoms intact bl right lower lid with small stye, mild redness of conjunctivae no exudate a/p: OD stye Polysporin opth ointment TID x 5 days monitor clinically
[2019-03-14] MEDS: OLANZapine 7.5 MG TABLET PO SCH (21:15)
[2019-03-14] MEDS: MONTELUKAST NA 10 MG TABLET PO SCH (21:16)
[2019-03-14] MEDS: THIAMINE HCL 100 MG TABLET (FP) PO SCH (21:17)
[2019-03-14] MEDS: NEOMY SULF/BACITRA/POLYMYXIN B OPHTHALMIC OINTMENT 3.5 GM OD SCH (21:17)
[2019-03-14] MEDS: hydrOXYzine PAMOATE 50 MG CAPSULE (FP) PO PRN (21:20)
[2019-03-14] MEDS ORDERED: BACITRACIN/POLYMYXIN OPH OINT 3.5 GM TUBE OD SCH (22:00)
[2019-03-14] MEDS: ESTROGENS,CONJUGATE VAGINAL CR 30 GM TUBE VG SCH (22:17)
[2019-03-15] MEDS ORDERED: PT OWN MED DRAWER 7, Y5N ONE ×6 (06:18→22:14)
[2019-03-15] MEDS: GABAPENTIN 100 MG CAPSULE PO SCH ×3 (06:57→22:01)
[2019-03-15] MEDS: NEOMY SULF/BACITRA/POLYMYXIN B OPHTHALMIC OINTMENT 3.5 GM OD SCH ×3 (06:57→22:01)
[2019-03-15] MEDS: hydrOXYzine PAMOATE 50 MG CAPSULE (FP) PO PRN ×2 (09:50→22:04)
[2019-03-15] MEDS: PRENATAL VITAMINS W/ FOLIC ACID TABLET (FP) PO SCH (09:50)
[2019-03-15] MEDS: amLODIPine BESYLATE 10 MG TABLET (FP) PO SCH (09:51)
[2019-03-15] MEDS: ASPIRIN 81 MG CHEWABLE TABLETS PO SCH (09:51)
[2019-03-15] MEDS: ARTIFICIAL TEARS (POLYVINYL ALCOHOL) OPTH DROPS OS SCH ×4 (09:51→22:01)
[2019-03-15] MEDS: METHOCARBAMOL 500 MG TABLET PO SCH ×4 (09:51→22:01)
[2019-03-15] MEDS: BUDESONIDE/FORMETEROL FUMARATE 80/4.5 mcg INHALER IH SCH ×2 (09:52→22:04)
[2019-03-15] MEDS: TRIAMCINOLONE ACET 0.1% OINT 15 GM TUBE TP SCH (09:52)
[2019-03-15] MEDS: ESTROGENS,CONJUGATE VAGINAL CR 30 GM TUBE VG SCH (22:00)
[2019-03-15] MEDS: MELATONIN 5 MG TABLETS PO PRN (22:01)
[2019-03-15] MEDS: MONTELUKAST NA 10 MG TABLET PO SCH (22:01)
[2019-03-15] MEDS: THIAMINE HCL 100 MG TABLET (FP) PO SCH (22:01)
[2019-03-15] MEDS: OLANZapine 7.5 MG TABLET PO SCH (22:01)
[2019-03-16] MEDS ORDERED: PT OWN MED DRAWER 7, Y5N ONE ×6 (06:13→21:59)
[2019-03-16] MEDS: GABAPENTIN 100 MG CAPSULE PO SCH ×3 (06:46→21:45)
[2019-03-16] MEDS: NEOMY SULF/BACITRA/POLYMYXIN B OPHTHALMIC OINTMENT 3.5 GM OD SCH ×3 (06:47→21:45)
[2019-03-16] MEDS: PRENATAL VITAMINS W/ FOLIC ACID TABLET (FP) PO SCH (09:53)
[2019-03-16] MEDS: BUDESONIDE/FORMETEROL FUMARATE 80/4.5 mcg INHALER IH SCH ×2 (09:53→21:47)
[2019-03-16] MEDS: ASPIRIN 81 MG CHEWABLE TABLETS PO SCH (09:53)
[2019-03-16] MEDS: METHOCARBAMOL 500 MG TABLET PO SCH ×4 (09:53→21:46)
[2019-03-16] MEDS: ARTIFICIAL TEARS (POLYVINYL ALCOHOL) OPTH DROPS OS SCH ×4 (09:53→21:45)
[2019-03-16] MEDS: amLODIPine BESYLATE 10 MG TABLET (FP) PO SCH (09:54)
[2019-03-16] MEDS: TRIAMCINOLONE ACET 0.1% OINT 15 GM TUBE TP SCH (09:56)
[2019-03-16] MEDS: ESTROGENS,CONJUGATE VAGINAL CR 30 GM TUBE VG SCH (21:44)
[2019-03-16] MEDS: THIAMINE HCL 100 MG TABLET (FP) PO SCH (21:45)
[2019-03-16] MEDS: hydrOXYzine PAMOATE 50 MG CAPSULE (FP) PO PRN (21:46)
[2019-03-16] MEDS: MONTELUKAST NA 10 MG TABLET PO SCH (21:46)
[2019-03-16] MEDS: OLANZapine 7.5 MG TABLET PO SCH (21:47)
[2019-03-16] MEDS: MELATONIN 5 MG TABLETS PO PRN (21:48)
[2019-03-17] MEDS ORDERED: PT OWN MED DRAWER 7, Y5N ONE ×6 (06:12→22:15)
[2019-03-17] MEDS: GABAPENTIN 100 MG CAPSULE PO SCH ×3 (06:49→21:42)
[2019-03-17] MEDS: NEOMY SULF/BACITRA/POLYMYXIN B OPHTHALMIC OINTMENT 3.5 GM OD SCH ×3 (06:49→21:42)
[2019-03-17] MEDS: TRIAMCINOLONE ACET 0.1% OINT 15 GM TUBE TP SCH (09:41)
[2019-03-17] MEDS: PRENATAL VITAMINS W/ FOLIC ACID TABLET (FP) PO SCH (09:42)
[2019-03-17] MEDS: ASPIRIN 81 MG CHEWABLE TABLETS PO SCH (09:42)
[2019-03-17] MEDS: BUDESONIDE/FORMETEROL FUMARATE 80/4.5 mcg INHALER IH SCH ×2 (09:42→21:42)
[2019-03-17] MEDS: ARTIFICIAL TEARS (POLYVINYL ALCOHOL) OPTH DROPS OS SCH ×4 (09:42→21:42)
[2019-03-17] MEDS: METHOCARBAMOL 500 MG TABLET PO SCH ×4 (09:42→21:42)
[2019-03-17] MEDS: amLODIPine BESYLATE 10 MG TABLET (FP) PO SCH (09:43)
[2019-03-17] MEDS ORDERED: BENZOCAINE 20 % GEL TUBE MM PRN (11:40)
--- NOTE | 2019-03-17 11:40 | PN ---
S Progress Note Note: Patient c/o sore to lower gums. Has poor dentition and missing teeth. Vital Signs Temperature 97.9 F 03/17/19 06:40 Pulse Rate 89 03/17/19 09:15 Respiratory Rate 18 03/17/19 06:40 Blood Pressure 128/76 03/17/19 09:15 O2 Sat by Pulse Oximetry (%) Laboratory Tests 03/13/19 09:20 WBC 7.5 RBC 3.46 L Hgb 12.3 Hct 36.2 MCV 104.7 H MCH 35.6 H MCHC 34.0 RDW 13.1 Plt Count 240 MPV 9.0 Absolute Neuts (auto) 4.4 Neutrophils % 59.1 Lymphocytes % 24.8 Monocytes % 13.3 H Eosinophils % 2.4 Basophils % 0.4 Nucleated RBC % 0 PE oral mucosa moist, poor dentition, missing teeth. + chancre sore left side of lower gums A/P chancre sore will order valtrex 1gm po x one oragel prn
[2019-03-17] MEDS ORDERED: valACYclovir HCL 500 MG TABLET (FP) PO ONE (12:00)
[2019-03-17] MEDS: hydrOXYzine PAMOATE 50 MG CAPSULE (FP) PO PRN (14:05)
[2019-03-17] MEDS: OLANZapine 7.5 MG TABLET PO SCH (21:42)
[2019-03-17] MEDS: THIAMINE HCL 100 MG TABLET (FP) PO SCH (21:42)
[2019-03-17] MEDS: MONTELUKAST NA 10 MG TABLET PO SCH (21:42)
[2019-03-17] MEDS: ESTROGENS,CONJUGATE VAGINAL CR 30 GM TUBE VG SCH (21:43)
[2019-03-17] MEDS: MELATONIN 5 MG TABLETS PO PRN (21:46)
[2019-03-18] MEDS ORDERED: PT OWN MED DRAWER 7, Y5N ONE ×6 (05:49→19:17)
[2019-03-18] MEDS: GABAPENTIN 100 MG CAPSULE PO SCH ×3 (06:54→21:09)
[2019-03-18] MEDS: NEOMY SULF/BACITRA/POLYMYXIN B OPHTHALMIC OINTMENT 3.5 GM OD SCH ×3 (06:55→21:10)
[2019-03-18] MEDS ORDERED: ERGOCALCIFEROL (VIT D2) 50,000 UNIT (1.25 MG) CAPSULE PO SCH (10:00)
[2019-03-18] MEDS: ARTIFICIAL TEARS (POLYVINYL ALCOHOL) OPTH DROPS OS SCH ×4 (10:01→21:10)
[2019-03-18] MEDS: BUDESONIDE/FORMETEROL FUMARATE 80/4.5 mcg INHALER IH SCH ×2 (10:02→21:09)
[2019-03-18] MEDS: TRIAMCINOLONE ACET 0.1% OINT 15 GM TUBE TP SCH (10:04)
[2019-03-18] MEDS: PRENATAL VITAMINS W/ FOLIC ACID TABLET (FP) PO SCH (10:04)
[2019-03-18] MEDS: ASPIRIN 81 MG CHEWABLE TABLETS PO SCH (10:04)
[2019-03-18] MEDS: METHOCARBAMOL 500 MG TABLET PO SCH ×4 (10:04→21:09)
[2019-03-18] MEDS: amLODIPine BESYLATE 10 MG TABLET (FP) PO SCH (10:05)
[2019-03-18] MEDS: hydrOXYzine PAMOATE 50 MG CAPSULE (FP) PO PRN (10:05)
[2019-03-18] MEDS: THIAMINE HCL 100 MG TABLET (FP) PO SCH (21:09)
[2019-03-18] MEDS: MONTELUKAST NA 10 MG TABLET PO SCH (21:09)
[2019-03-18] MEDS: MELATONIN 5 MG TABLETS PO PRN (21:11)
[2019-03-18] MEDS ORDERED: OLANZAPINE 5 MG, OLANZAPINE 2.5 MG PO SCH (22:00)
[2019-03-18] MEDS: OLANZapine 7.5 MG TABLET PO SCH (23:00)
[2019-03-18] MEDS: ESTROGENS,CONJUGATE VAGINAL CR 30 GM TUBE VG SCH (23:00)
[2019-03-19] MEDS: GABAPENTIN 100 MG CAPSULE PO SCH ×3 (06:50→21:56)
[2019-03-19] MEDS: NEOMY SULF/BACITRA/POLYMYXIN B OPHTHALMIC OINTMENT 3.5 GM OD SCH ×2 (06:51→13:46)
[2019-03-19] MEDS ORDERED: PT OWN MED DRAWER 7, Y5N ONE ×4 (08:42→22:03)
[2019-03-19] MEDS: ASPIRIN 81 MG CHEWABLE TABLETS PO SCH (09:45)
[2019-03-19] MEDS: ARTIFICIAL TEARS (POLYVINYL ALCOHOL) OPTH DROPS OS SCH ×4 (09:45→21:56)
[2019-03-19] MEDS: PRENATAL VITAMINS W/ FOLIC ACID TABLET (FP) PO SCH (09:45)
[2019-03-19] MEDS: TRIAMCINOLONE ACET 0.1% OINT 15 GM TUBE TP SCH (09:45)
[2019-03-19] MEDS: BUDESONIDE/FORMETEROL FUMARATE 80/4.5 mcg INHALER IH SCH ×2 (09:46→21:57)
[2019-03-19] MEDS: amLODIPine BESYLATE 10 MG TABLET (FP) PO SCH (09:46)
[2019-03-19] MEDS: METHOCARBAMOL 500 MG TABLET PO SCH ×4 (09:46→21:56)
[2019-03-19] MEDS: hydrOXYzine PAMOATE 50 MG CAPSULE (FP) PO PRN (13:48)
[2019-03-19] MEDS: MONTELUKAST NA 10 MG TABLET PO SCH (21:56)
[2019-03-19] MEDS: THIAMINE HCL 100 MG TABLET (FP) PO SCH (21:56)
[2019-03-19] MEDS: OLANZapine 7.5 MG TABLET PO SCH (21:56)
[2019-03-19] MEDS: ESTROGENS,CONJUGATE VAGINAL CR 30 GM TUBE VG SCH (21:57)
[2019-03-20] MEDS: GABAPENTIN 100 MG CAPSULE PO SCH ×3 (06:53→21:47)
[2019-03-20] MEDS ORDERED: PT OWN MED DRAWER 7, Y5N ONE ×5 (08:33→20:26)
[2019-03-20] MEDS: TRIAMCINOLONE ACET 0.1% OINT 15 GM TUBE TP SCH (09:44)
[2019-03-20] MEDS: ARTIFICIAL TEARS (POLYVINYL ALCOHOL) OPTH DROPS OS SCH ×4 (09:45→21:46)
[2019-03-20] MEDS: BUDESONIDE/FORMETEROL FUMARATE 80/4.5 mcg INHALER IH SCH ×2 (09:45→23:08)
[2019-03-20] MEDS: METHOCARBAMOL 500 MG TABLET PO SCH ×4 (09:45→23:08)
[2019-03-20] MEDS: PRENATAL VITAMINS W/ FOLIC ACID TABLET (FP) PO SCH (09:45)
[2019-03-20] MEDS: ERGOCALCIFEROL (VIT D2) 50,000 UNIT (1.25 MG) CAPSULE PO SCH (09:45)
[2019-03-20] MEDS: ASPIRIN 81 MG CHEWABLE TABLETS PO SCH (09:45)
[2019-03-20] MEDS: amLODIPine BESYLATE 10 MG TABLET (FP) PO SCH (09:45)
[2019-03-20] MEDS: hydrOXYzine PAMOATE 50 MG CAPSULE (FP) PO PRN ×3 (09:48→21:51)
[2019-03-20] MEDS: COLLOIDAL OATMEAL 1 BAR EACH TP PRN (09:49)
--- NOTE | 2019-03-20 10:28 | PREP.REFER ---
HIV PrEP/PEP - PrEP HIV Risk Assessment When was your last HIV test?: this admission- negative Are you concerned about any sexual encounters past 6 months?: Yes (Has unprotected sex; realizes that she is at risk,) Have you had a STI in the last 6 months?: Yes (Had Herpes, treated) Have you shared needles or other equipment?: No Are you interested in daily medication to help prevent HIV?: Yes (Patient is presently on Truvada when in the community; also using condoms) Recommendation: Consider PrEP referral Comment: Encouraged patient to return to her provider and continue PrEP as prescribed.
--- NOTE | 2019-03-20 10:32 | PN ---
[facility] Progress Note (SOAP) Subjective: Patient is c/o itchy rash on skin. States that she was prescribed a cream by her PCP. Reports hx of Eczema, states that she has bedbugs in her home. Objective: P/E General: no apparent distress HEENTM: poor dentition, missing teeth, PERRLA, stye on right upper eyelid SKIN: scattered lesions on arms, sides, legs from ankles to mid-calf. Neuro: CN 2-12 intact. 03/20/19 10:29 03/20/19 10:31 Vital Signs Period Temp Pulse Resp BP Sys/Mejia Pulse Ox Last 24 Hr 97.4 F 81-85 18-18 113-116/72-77 Assessment: Rash stye 03/20/19 10:31 Plan: patient has triamcinolone ordered already, advised to use it. Added aveeno soap and lac-hydrin Will continue polysporin
[2019-03-20] MEDS: NEOMY SULF/BACITRA/POLYMYXIN B OPHTHALMIC OINTMENT 3.5 GM OU SCH (21:46)
[2019-03-20] MEDS: MELATONIN 5 MG TABLETS PO PRN (21:47)
[2019-03-20] MEDS: MONTELUKAST NA 10 MG TABLET PO SCH (21:47)
[2019-03-20] MEDS: THIAMINE HCL 100 MG TABLET (FP) PO SCH (21:47)
[2019-03-20] MEDS: OLANZapine 7.5 MG TABLET PO SCH (21:48)
[2019-03-20] MEDS ORDERED: BACITRACIN/POLYMYXIN OPH OINT 3.5 GM TUBE OU SCH (22:00)
[2019-03-20] MEDS: ESTROGENS,CONJUGATE VAGINAL CR 30 GM TUBE VG SCH (23:07)
[2019-03-21] MEDS: GABAPENTIN 100 MG CAPSULE PO SCH ×3 (06:46→22:25)
[2019-03-21] MEDS ORDERED: PT OWN MED DRAWER 7, Y5N ONE ×2 (08:24→12:43)
[2019-03-21] MEDS: METHOCARBAMOL 500 MG TABLET PO SCH ×4 (10:04→22:26)
[2019-03-21] MEDS: PRENATAL VITAMINS W/ FOLIC ACID TABLET (FP) PO SCH (10:04)
[2019-03-21] MEDS: ASPIRIN 81 MG CHEWABLE TABLETS PO SCH (10:04)
[2019-03-21] MEDS: ARTIFICIAL TEARS (POLYVINYL ALCOHOL) OPTH DROPS OS SCH ×4 (10:04→22:24)
[2019-03-21] MEDS: NEOMY SULF/BACITRA/POLYMYXIN B OPHTHALMIC OINTMENT 3.5 GM OU SCH ×2 (10:05→22:25)
[2019-03-21] MEDS: amLODIPine BESYLATE 10 MG TABLET (FP) PO SCH (10:05)
[2019-03-21] MEDS: TRIAMCINOLONE ACET 0.1% OINT 15 GM TUBE TP SCH (10:05)
[2019-03-21] MEDS: BUDESONIDE/FORMETEROL FUMARATE 80/4.5 mcg INHALER IH SCH ×2 (10:06→22:31)
[2019-03-21] MEDS: hydrOXYzine PAMOATE 50 MG CAPSULE (FP) PO PRN ×2 (18:07→22:28)
[2019-03-21] MEDS: MONTELUKAST NA 10 MG TABLET PO SCH (22:26)
[2019-03-21] MEDS: THIAMINE HCL 100 MG TABLET (FP) PO SCH (22:26)
[2019-03-21] MEDS: OLANZapine 7.5 MG TABLET PO SCH (22:29)
[2019-03-21] MEDS: ESTROGENS,CONJUGATE VAGINAL CR 30 GM TUBE VG SCH (22:30)
[2019-03-21] MEDS: MELATONIN 5 MG TABLETS PO PRN (22:33)
[2019-03-22] MEDS: GABAPENTIN 100 MG CAPSULE PO SCH ×3 (06:58→21:43)
[2019-03-22] MEDS ORDERED: PT OWN MED DRAWER 7, Y5N ONE ×3 (09:04→10:11)
[2019-03-22] MEDS: METHOCARBAMOL 500 MG TABLET PO SCH ×4 (09:59→21:43)
[2019-03-22] MEDS: ASPIRIN 81 MG CHEWABLE TABLETS PO SCH (10:00)
[2019-03-22] MEDS: PRENATAL VITAMINS W/ FOLIC ACID TABLET (FP) PO SCH (10:00)
[2019-03-22] MEDS: amLODIPine BESYLATE 10 MG TABLET (FP) PO SCH (10:00)
[2019-03-22] MEDS: BUDESONIDE/FORMETEROL FUMARATE 80/4.5 mcg INHALER IH SCH ×3 (10:02→21:43)
[2019-03-22] MEDS: hydrOXYzine PAMOATE 50 MG CAPSULE (FP) PO PRN ×2 (10:02→21:43)
[2019-03-22] MEDS: NEOMY SULF/BACITRA/POLYMYXIN B OPHTHALMIC OINTMENT 3.5 GM OU SCH ×2 (10:02→21:42)
[2019-03-22] MEDS: TRIAMCINOLONE ACET 0.1% OINT 15 GM TUBE TP SCH (10:03)
[2019-03-22] MEDS: ARTIFICIAL TEARS (POLYVINYL ALCOHOL) OPTH DROPS OS SCH ×4 (10:03→21:43)
[2019-03-22] MEDS: AMMONIUM LACTATE 12% LOTION 225 GM BOTTLE TP PRN (10:04)
[2019-03-22] MEDS: MONTELUKAST NA 10 MG TABLET PO SCH (21:43)
[2019-03-22] MEDS: OLANZapine 7.5 MG TABLET PO SCH (21:43)
[2019-03-22] MEDS: THIAMINE HCL 100 MG TABLET (FP) PO SCH (21:44)
[2019-03-22] MEDS: ESTROGENS,CONJUGATE VAGINAL CR 30 GM TUBE VG SCH (21:44)
[2019-03-22] MEDS: MELATONIN 5 MG TABLETS PO PRN (21:45)
[2019-03-23] MEDS: GABAPENTIN 100 MG CAPSULE PO SCH ×3 (06:28→21:42)
[2019-03-23] MEDS: METHOCARBAMOL 500 MG TABLET PO SCH ×4 (10:55→21:42)
[2019-03-23] MEDS: ARTIFICIAL TEARS (POLYVINYL ALCOHOL) OPTH DROPS OS SCH ×4 (10:56→21:41)
[2019-03-23] MEDS: ASPIRIN 81 MG CHEWABLE TABLETS PO SCH (10:56)
[2019-03-23] MEDS: amLODIPine BESYLATE 10 MG TABLET (FP) PO SCH (10:56)
[2019-03-23] MEDS: PRENATAL VITAMINS W/ FOLIC ACID TABLET (FP) PO SCH (10:56)
[2019-03-23] MEDS: BUDESONIDE/FORMETEROL FUMARATE 80/4.5 mcg INHALER IH SCH ×2 (10:57→21:46)
[2019-03-23] MEDS: NEOMY SULF/BACITRA/POLYMYXIN B OPHTHALMIC OINTMENT 3.5 GM OU SCH ×2 (10:57→21:42)
[2019-03-23] MEDS: TRIAMCINOLONE ACET 0.1% OINT 15 GM TUBE TP SCH (10:58)
[2019-03-23] MEDS: hydrOXYzine PAMOATE 50 MG CAPSULE (FP) PO PRN ×2 (10:58→21:43)
[2019-03-23] MEDS ORDERED: PT OWN MED DRAWER 7, Y5N ONE ×7 (10:59→21:55)
[2019-03-23] MEDS: AMMONIUM LACTATE 12% LOTION 225 GM BOTTLE TP PRN (11:00)
[2019-03-23] MEDS: ESTROGENS,CONJUGATE VAGINAL CR 30 GM TUBE VG SCH (21:42)
[2019-03-23] MEDS: THIAMINE HCL 100 MG TABLET (FP) PO SCH (21:42)
[2019-03-23] MEDS: MONTELUKAST NA 10 MG TABLET PO SCH (21:42)
[2019-03-23] MEDS: MELATONIN 5 MG TABLETS PO PRN (21:43)
[2019-03-23] MEDS: OLANZapine 7.5 MG TABLET PO SCH (21:45)
[2019-03-24] MEDS: GABAPENTIN 100 MG CAPSULE PO SCH ×3 (07:05→21:47)
[2019-03-24] MEDS ORDERED: PT OWN MED DRAWER 7, Y5N ONE (09:25)
[2019-03-24] MEDS: TRIAMCINOLONE ACET 0.1% OINT 15 GM TUBE TP SCH (10:03)
[2019-03-24] MEDS: BUDESONIDE/FORMETEROL FUMARATE 80/4.5 mcg INHALER IH SCH ×2 (10:03→21:49)
[2019-03-24] MEDS: amLODIPine BESYLATE 10 MG TABLET (FP) PO SCH (10:04)
[2019-03-24] MEDS: hydrOXYzine PAMOATE 50 MG CAPSULE (FP) PO PRN ×2 (10:04→21:47)
[2019-03-24] MEDS: ARTIFICIAL TEARS (POLYVINYL ALCOHOL) OPTH DROPS OS SCH ×4 (10:04→21:52)
[2019-03-24] MEDS: METHOCARBAMOL 500 MG TABLET PO SCH ×4 (10:05→21:47)
[2019-03-24] MEDS: ASPIRIN 81 MG CHEWABLE TABLETS PO SCH (10:05)
[2019-03-24] MEDS: NEOMY SULF/BACITRA/POLYMYXIN B OPHTHALMIC OINTMENT 3.5 GM OU SCH ×2 (10:05→21:49)
[2019-03-24] MEDS: PRENATAL VITAMINS W/ FOLIC ACID TABLET (FP) PO SCH (10:05)
[2019-03-24] MEDS: THIAMINE HCL 100 MG TABLET (FP) PO SCH (21:47)
[2019-03-24] MEDS: ESTROGENS,CONJUGATE VAGINAL CR 30 GM TUBE VG SCH (21:48)
[2019-03-24] MEDS: MONTELUKAST NA 10 MG TABLET PO SCH (21:48)
[2019-03-24] MEDS: OLANZapine 7.5 MG TABLET PO SCH (21:49)
[2019-03-24] MEDS: MELATONIN 5 MG TABLETS PO PRN (21:51)
[2019-03-25] MEDS: GABAPENTIN 100 MG CAPSULE PO SCH ×3 (06:51→21:40)
[2019-03-25] MEDS: NEOMY SULF/BACITRA/POLYMYXIN B OPHTHALMIC OINTMENT 3.5 GM OU SCH ×2 (11:00→21:40)
[2019-03-25] MEDS: ARTIFICIAL TEARS (POLYVINYL ALCOHOL) OPTH DROPS OS SCH ×4 (11:00→21:38)
[2019-03-25] MEDS: AMMONIUM LACTATE 12% LOTION 225 GM BOTTLE TP PRN (11:00)
[2019-03-25] MEDS: BUDESONIDE/FORMETEROL FUMARATE 80/4.5 mcg INHALER IH SCH ×2 (11:00→21:39)
[2019-03-25] MEDS: TRIAMCINOLONE ACET 0.1% OINT 15 GM TUBE TP SCH (11:00)
[2019-03-25] MEDS: amLODIPine BESYLATE 10 MG TABLET (FP) PO SCH (11:02)
[2019-03-25] MEDS: PRENATAL VITAMINS W/ FOLIC ACID TABLET (FP) PO SCH (11:02)
[2019-03-25] MEDS: METHOCARBAMOL 500 MG TABLET PO SCH ×4 (11:02→21:41)
[2019-03-25] MEDS: ASPIRIN 81 MG CHEWABLE TABLETS PO SCH (11:02)
[2019-03-25] MEDS: hydrOXYzine PAMOATE 50 MG CAPSULE (FP) PO PRN ×2 (11:02→21:43)
[2019-03-25] MEDS ORDERED: PT OWN MED DRAWER 7, Y5N ONE ×4 (11:11→21:41)
[2019-03-25] MEDS: MONTELUKAST NA 10 MG TABLET PO SCH (21:41)
[2019-03-25] MEDS: OLANZapine 7.5 MG TABLET PO SCH (21:41)
[2019-03-25] MEDS: THIAMINE HCL 100 MG TABLET (FP) PO SCH (21:41)
[2019-03-25] MEDS: MELATONIN 5 MG TABLETS PO PRN (21:42)
[2019-03-25] MEDS: ESTROGENS,CONJUGATE VAGINAL CR 30 GM TUBE VG SCH (21:45)
[2019-03-26] MEDS: GABAPENTIN 100 MG CAPSULE PO SCH ×3 (06:46→21:18)
[2019-03-26] MEDS: METHOCARBAMOL 500 MG TABLET PO SCH ×4 (10:02→21:18)
[2019-03-26] MEDS: BUDESONIDE/FORMETEROL FUMARATE 80/4.5 mcg INHALER IH SCH ×2 (10:02→21:21)
[2019-03-26] MEDS: TRIAMCINOLONE ACET 0.1% OINT 15 GM TUBE TP SCH (10:03)
[2019-03-26] MEDS: NEOMY SULF/BACITRA/POLYMYXIN B OPHTHALMIC OINTMENT 3.5 GM OU SCH ×2 (10:03→21:21)
[2019-03-26] MEDS: PRENATAL VITAMINS W/ FOLIC ACID TABLET (FP) PO SCH (10:03)
[2019-03-26] MEDS: amLODIPine BESYLATE 10 MG TABLET (FP) PO SCH (10:03)
[2019-03-26] MEDS: ASPIRIN 81 MG CHEWABLE TABLETS PO SCH (10:03)
[2019-03-26] MEDS: hydrOXYzine PAMOATE 50 MG CAPSULE (FP) PO PRN ×2 (10:05→21:18)
[2019-03-26] MEDS ORDERED: PT OWN MED DRAWER 7, Y5N ONE ×2 (10:08→14:09)
[2019-03-26] MEDS: ARTIFICIAL TEARS (POLYVINYL ALCOHOL) OPTH DROPS OS SCH ×4 (10:08→21:20)
[2019-03-26] MEDS: MONTELUKAST NA 10 MG TABLET PO SCH (21:18)
[2019-03-26] MEDS: OLANZapine 7.5 MG TABLET PO SCH (21:19)
[2019-03-26] MEDS: THIAMINE HCL 100 MG TABLET (FP) PO SCH (21:19)
[2019-03-26] MEDS: MELATONIN 5 MG TABLETS PO PRN (21:20)
[2019-03-26] MEDS: ESTROGENS,CONJUGATE VAGINAL CR 30 GM TUBE VG SCH (21:21)
[2019-03-27] MEDS: GABAPENTIN 100 MG CAPSULE PO SCH ×3 (06:48→21:35)
[2019-03-27] MEDS ORDERED: PT OWN MED DRAWER 7, Y5N ONE ×6 (08:11→21:40)
[2019-03-27] MEDS: amLODIPine BESYLATE 10 MG TABLET (FP) PO SCH (10:39)
[2019-03-27] MEDS: PRENATAL VITAMINS W/ FOLIC ACID TABLET (FP) PO SCH (10:39)
[2019-03-27] MEDS: ASPIRIN 81 MG CHEWABLE TABLETS PO SCH (10:40)
[2019-03-27] MEDS: BUDESONIDE/FORMETEROL FUMARATE 80/4.5 mcg INHALER IH SCH ×2 (10:40→21:38)
[2019-03-27] MEDS: METHOCARBAMOL 500 MG TABLET PO SCH ×4 (10:40→21:35)
[2019-03-27] MEDS: ARTIFICIAL TEARS (POLYVINYL ALCOHOL) OPTH DROPS OS SCH ×4 (10:40→21:37)
[2019-03-27] MEDS: hydrOXYzine PAMOATE 50 MG CAPSULE (FP) PO PRN ×2 (10:43→21:37)
[2019-03-27] MEDS: NEOMY SULF/BACITRA/POLYMYXIN B OPHTHALMIC OINTMENT 3.5 GM OU SCH ×2 (10:43→21:39)
[2019-03-27] MEDS: ERGOCALCIFEROL (VIT D2) 50,000 UNIT (1.25 MG) CAPSULE PO SCH (10:44)
[2019-03-27] MEDS: TRIAMCINOLONE ACET 0.1% OINT 15 GM TUBE TP SCH (10:47)
[2019-03-27] MEDS: THIAMINE HCL 100 MG TABLET (FP) PO SCH (21:35)
[2019-03-27] MEDS: MONTELUKAST NA 10 MG TABLET PO SCH (21:35)
[2019-03-27] MEDS: ESTROGENS,CONJUGATE VAGINAL CR 30 GM TUBE VG SCH (21:36)
[2019-03-27] MEDS: OLANZapine 7.5 MG TABLET PO SCH (21:36)
[2019-03-27] MEDS: MELATONIN 5 MG TABLETS PO PRN (21:37)
[2019-03-28] MEDS: GABAPENTIN 100 MG CAPSULE PO SCH ×3 (06:56→21:32)
[2019-03-28] MEDS: PRENATAL VITAMINS W/ FOLIC ACID TABLET (FP) PO SCH (10:16)
[2019-03-28] MEDS: METHOCARBAMOL 500 MG TABLET PO SCH ×4 (10:16→21:32)
[2019-03-28] MEDS: ASPIRIN 81 MG CHEWABLE TABLETS PO SCH (10:17)
[2019-03-28] MEDS: amLODIPine BESYLATE 10 MG TABLET (FP) PO SCH (10:17)
[2019-03-28] MEDS: BUDESONIDE/FORMETEROL FUMARATE 80/4.5 mcg INHALER IH SCH ×2 (10:17→21:34)
[2019-03-28] MEDS: TRIAMCINOLONE ACET 0.1% OINT 15 GM TUBE TP SCH (10:17)
[2019-03-28] MEDS: ARTIFICIAL TEARS (POLYVINYL ALCOHOL) OPTH DROPS OS SCH ×4 (10:17→21:37)
[2019-03-28] MEDS: NEOMY SULF/BACITRA/POLYMYXIN B OPHTHALMIC OINTMENT 3.5 GM OU SCH ×2 (10:18→21:36)
[2019-03-28] MEDS: hydrOXYzine PAMOATE 50 MG CAPSULE (FP) PO PRN ×2 (10:20→21:32)
--- NOTE | 2019-03-28 13:16 | PN ---
S Progress Note (SOAP) Subjective: patient with lesion on lower gum; also reporting herpes lesion on vaginal area. History of herpes, has taken valtrex in the past Objective: Vital Signs Period Temp Pulse Resp BP Sys/Mejia Pulse Ox Last 24 Hr 97.8 F 73-91 18-18 119-122/79-82 03/28/19 13:10 P/E general: no apparent distress HEENTM:mouth- one lesion lower gum Assessment: Herpes 03/28/19 13:16 Plan: Started Valtrex
[2019-03-28] MEDS ORDERED: PT OWN MED DRAWER 7, Y5N ONE ×3 (14:16→23:16)
[2019-03-28] MEDS: MONTELUKAST NA 10 MG TABLET PO SCH (21:32)
[2019-03-28] MEDS: THIAMINE HCL 100 MG TABLET (FP) PO SCH (21:32)
[2019-03-28] MEDS: MELATONIN 5 MG TABLETS PO PRN (21:32)
[2019-03-28] MEDS: OLANZapine 7.5 MG TABLET PO SCH (21:33)
[2019-03-28] MEDS: ESTROGENS,CONJUGATE VAGINAL CR 30 GM TUBE VG SCH (21:35)
[2019-03-28] MEDS: valACYclovir HCL 500 MG TABLET (FP) PO SCH (21:36)
[2019-03-29] MEDS: GABAPENTIN 100 MG CAPSULE PO SCH ×3 (07:14→21:28)
[2019-03-29] MEDS: TRIAMCINOLONE ACET 0.1% OINT 15 GM TUBE TP SCH (10:16)
[2019-03-29] MEDS: METHOCARBAMOL 500 MG TABLET PO SCH ×4 (10:17→21:28)
[2019-03-29] MEDS: valACYclovir HCL 500 MG TABLET (FP) PO SCH ×2 (10:17→21:28)
[2019-03-29] MEDS: ASPIRIN 81 MG CHEWABLE TABLETS PO SCH (10:17)
[2019-03-29] MEDS: amLODIPine BESYLATE 10 MG TABLET (FP) PO SCH (10:17)
[2019-03-29] MEDS: PRENATAL VITAMINS W/ FOLIC ACID TABLET (FP) PO SCH (10:17)
[2019-03-29] MEDS: ARTIFICIAL TEARS (POLYVINYL ALCOHOL) OPTH DROPS OS SCH ×4 (10:17→21:30)
[2019-03-29] MEDS: NEOMY SULF/BACITRA/POLYMYXIN B OPHTHALMIC OINTMENT 3.5 GM OU SCH ×2 (10:18→21:29)
[2019-03-29] MEDS: BUDESONIDE/FORMETEROL FUMARATE 80/4.5 mcg INHALER IH SCH ×2 (10:18→21:30)
[2019-03-29] MEDS: hydrOXYzine PAMOATE 50 MG CAPSULE (FP) PO PRN (10:20)
[2019-03-29] MEDS: AMMONIUM LACTATE 12% LOTION 225 GM BOTTLE TP PRN (10:21)
[2019-03-29] MEDS ORDERED: PT OWN MED DRAWER 7, Y5N ONE ×3 (12:45→20:23)
[2019-03-29] MEDS: THIAMINE HCL 100 MG TABLET (FP) PO SCH (21:28)
[2019-03-29] MEDS: MONTELUKAST NA 10 MG TABLET PO SCH (21:28)
[2019-03-29] MEDS: OLANZapine 7.5 MG TABLET PO SCH (21:28)
[2019-03-29] MEDS: ESTROGENS,CONJUGATE VAGINAL CR 30 GM TUBE VG SCH (21:30)
[2019-03-30] MEDS: GABAPENTIN 100 MG CAPSULE PO SCH ×3 (07:01→21:32)
[2019-03-30] MEDS: ARTIFICIAL TEARS (POLYVINYL ALCOHOL) OPTH DROPS OS SCH ×4 (10:06→21:31)
[2019-03-30] MEDS: TRIAMCINOLONE ACET 0.1% OINT 15 GM TUBE TP SCH (10:07)
[2019-03-30] MEDS: AMMONIUM LACTATE 12% LOTION 225 GM BOTTLE TP PRN (10:07)
[2019-03-30] MEDS: BUDESONIDE/FORMETEROL FUMARATE 80/4.5 mcg INHALER IH SCH ×2 (10:07→21:33)
[2019-03-30] MEDS: amLODIPine BESYLATE 10 MG TABLET (FP) PO SCH (10:08)
[2019-03-30] MEDS: PRENATAL VITAMINS W/ FOLIC ACID TABLET (FP) PO SCH (10:08)
[2019-03-30] MEDS: ASPIRIN 81 MG CHEWABLE TABLETS PO SCH (10:09)
[2019-03-30] MEDS: METHOCARBAMOL 500 MG TABLET PO SCH ×4 (10:09→21:32)
[2019-03-30] MEDS: NEOMY SULF/BACITRA/POLYMYXIN B OPHTHALMIC OINTMENT 3.5 GM OU SCH ×2 (10:09→21:31)
[2019-03-30] MEDS: valACYclovir HCL 500 MG TABLET (FP) PO SCH ×2 (10:09→21:32)
[2019-03-30] MEDS: hydrOXYzine PAMOATE 50 MG CAPSULE (FP) PO PRN (10:10)
[2019-03-30] MEDS: THIAMINE HCL 100 MG TABLET (FP) PO SCH (21:32)
[2019-03-30] MEDS: MONTELUKAST NA 10 MG TABLET PO SCH (21:32)
[2019-03-30] MEDS: OLANZapine 7.5 MG TABLET PO SCH (21:32)
[2019-03-30] MEDS: MELATONIN 5 MG TABLETS PO PRN (21:32)
[2019-03-30] MEDS: ESTROGENS,CONJUGATE VAGINAL CR 30 GM TUBE VG SCH (21:33)
[2019-03-31] MEDS: GABAPENTIN 100 MG CAPSULE PO SCH ×3 (06:49→21:55)
[2019-03-31] MEDS: ARTIFICIAL TEARS (POLYVINYL ALCOHOL) OPTH DROPS OS SCH ×4 (09:57→21:56)
[2019-03-31] MEDS: NEOMY SULF/BACITRA/POLYMYXIN B OPHTHALMIC OINTMENT 3.5 GM OU SCH ×2 (09:57→21:57)
[2019-03-31] MEDS: BUDESONIDE/FORMETEROL FUMARATE 80/4.5 mcg INHALER IH SCH ×2 (09:57→21:57)
[2019-03-31] MEDS: PRENATAL VITAMINS W/ FOLIC ACID TABLET (FP) PO SCH (09:58)
[2019-03-31] MEDS: ASPIRIN 81 MG CHEWABLE TABLETS PO SCH (09:58)
[2019-03-31] MEDS: valACYclovir HCL 500 MG TABLET (FP) PO SCH ×2 (09:58→21:55)
[2019-03-31] MEDS: amLODIPine BESYLATE 10 MG TABLET (FP) PO SCH (09:58)
[2019-03-31] MEDS: METHOCARBAMOL 500 MG TABLET PO SCH ×4 (09:58→21:55)
[2019-03-31] MEDS: hydrOXYzine PAMOATE 50 MG CAPSULE (FP) PO PRN ×2 (09:59→21:55)
[2019-03-31] MEDS: TRIAMCINOLONE ACET 0.1% OINT 15 GM TUBE TP SCH (10:01)
[2019-03-31] MEDS ORDERED: PT OWN MED DRAWER 7, Y5N ONE ×3 (12:07→21:58)
[2019-03-31] MEDS: MELATONIN 5 MG TABLETS PO PRN (21:55)
[2019-03-31] MEDS: OLANZapine 7.5 MG TABLET PO SCH (21:55)
[2019-03-31] MEDS: MONTELUKAST NA 10 MG TABLET PO SCH (21:55)
[2019-03-31] MEDS: ESTROGENS,CONJUGATE VAGINAL CR 30 GM TUBE VG SCH (21:58)
[2019-03-31] MEDS: THIAMINE HCL 100 MG TABLET (FP) PO SCH (22:02)
[2019-04-01] MEDS: GABAPENTIN 100 MG CAPSULE PO SCH ×3 (06:53→21:46)
[2019-04-01] MEDS ORDERED: PT OWN MED DRAWER 7, Y5N ONE ×3 (08:53→21:52)
[2019-04-01] MEDS: valACYclovir HCL 500 MG TABLET (FP) PO SCH ×2 (10:03→21:46)
[2019-04-01] MEDS: ASPIRIN 81 MG CHEWABLE TABLETS PO SCH (10:03)
[2019-04-01] MEDS: METHOCARBAMOL 500 MG TABLET PO SCH ×4 (10:03→21:47)
[2019-04-01] MEDS: BUDESONIDE/FORMETEROL FUMARATE 80/4.5 mcg INHALER IH SCH ×2 (10:03→21:48)
[2019-04-01] MEDS: PRENATAL VITAMINS W/ FOLIC ACID TABLET (FP) PO SCH (10:03)
[2019-04-01] MEDS: amLODIPine BESYLATE 10 MG TABLET (FP) PO SCH (10:03)
[2019-04-01] MEDS: ARTIFICIAL TEARS (POLYVINYL ALCOHOL) OPTH DROPS OS SCH ×4 (10:04→21:46)
[2019-04-01] MEDS: TRIAMCINOLONE ACET 0.1% OINT 15 GM TUBE TP SCH (10:04)
[2019-04-01] MEDS: NEOMY SULF/BACITRA/POLYMYXIN B OPHTHALMIC OINTMENT 3.5 GM OU SCH ×2 (10:04→21:46)
[2019-04-01] MEDS: hydrOXYzine PAMOATE 50 MG CAPSULE (FP) PO PRN ×2 (10:05→21:46)
[2019-04-01] MEDS: COLLOIDAL OATMEAL 1 BAR EACH TP PRN (10:22)
[2019-04-01] MEDS: OLANZapine 7.5 MG TABLET PO SCH (21:47)
[2019-04-01] MEDS: THIAMINE HCL 100 MG TABLET (FP) PO SCH (21:47)
[2019-04-01] MEDS: MONTELUKAST NA 10 MG TABLET PO SCH (21:47)
[2019-04-01] MEDS: MELATONIN 5 MG TABLETS PO PRN (21:47)
[2019-04-01] MEDS: ESTROGENS,CONJUGATE VAGINAL CR 30 GM TUBE VG SCH (21:48)
[2019-04-02] MEDS: GABAPENTIN 100 MG CAPSULE PO SCH ×3 (06:43→21:57)
[2019-04-02] MEDS: BUDESONIDE/FORMETEROL FUMARATE 80/4.5 mcg INHALER IH SCH ×2 (09:46→21:58)
[2019-04-02] MEDS: ARTIFICIAL TEARS (POLYVINYL ALCOHOL) OPTH DROPS OS SCH ×4 (09:46→21:58)
[2019-04-02] MEDS: NEOMY SULF/BACITRA/POLYMYXIN B OPHTHALMIC OINTMENT 3.5 GM OU SCH ×2 (09:46→21:59)
[2019-04-02] MEDS: hydrOXYzine PAMOATE 50 MG CAPSULE (FP) PO PRN ×2 (09:47→22:01)
[2019-04-02] MEDS: PRENATAL VITAMINS W/ FOLIC ACID TABLET (FP) PO SCH (09:47)
[2019-04-02] MEDS: ASPIRIN 81 MG CHEWABLE TABLETS PO SCH (09:47)
[2019-04-02] MEDS: AMMONIUM LACTATE 12% LOTION 225 GM BOTTLE TP PRN (09:47)
[2019-04-02] MEDS: amLODIPine BESYLATE 10 MG TABLET (FP) PO SCH (09:47)
[2019-04-02] MEDS: METHOCARBAMOL 500 MG TABLET PO SCH ×4 (09:48→21:57)
[2019-04-02] MEDS: valACYclovir HCL 500 MG TABLET (FP) PO SCH ×2 (09:48→21:57)
[2019-04-02] MEDS: TRIAMCINOLONE ACET 0.1% OINT 15 GM TUBE TP SCH (09:49)
[2019-04-02] MEDS: OLANZapine 7.5 MG TABLET PO SCH (21:57)
[2019-04-02] MEDS: MONTELUKAST NA 10 MG TABLET PO SCH (21:57)
[2019-04-02] MEDS: THIAMINE HCL 100 MG TABLET (FP) PO SCH (21:58)
[2019-04-02] MEDS: ESTROGENS,CONJUGATE VAGINAL CR 30 GM TUBE VG SCH (21:59)
[2019-04-03] MEDS: GABAPENTIN 100 MG CAPSULE PO SCH ×3 (06:55→21:42)
[2019-04-03] MEDS: BUDESONIDE/FORMETEROL FUMARATE 80/4.5 mcg INHALER IH SCH ×2 (09:05→21:44)
[2019-04-03] MEDS: ASPIRIN 81 MG CHEWABLE TABLETS PO SCH (09:05)
[2019-04-03] MEDS: amLODIPine BESYLATE 10 MG TABLET (FP) PO SCH (09:05)
[2019-04-03] MEDS: ERGOCALCIFEROL (VIT D2) 50,000 UNIT (1.25 MG) CAPSULE PO SCH (09:05)
[2019-04-03] MEDS: valACYclovir HCL 500 MG TABLET (FP) PO SCH ×2 (09:05→21:42)
[2019-04-03] MEDS: PRENATAL VITAMINS W/ FOLIC ACID TABLET (FP) PO SCH (09:05)
[2019-04-03] MEDS: METHOCARBAMOL 500 MG TABLET PO SCH ×4 (09:06→21:42)
[2019-04-03] MEDS: hydrOXYzine PAMOATE 50 MG CAPSULE (FP) PO PRN ×2 (09:08→21:44)
[2019-04-03] MEDS: TRIAMCINOLONE ACET 0.1% OINT 15 GM TUBE TP SCH (09:46)
[2019-04-03] MEDS: NEOMY SULF/BACITRA/POLYMYXIN B OPHTHALMIC OINTMENT 3.5 GM OU SCH ×2 (09:47→21:43)
[2019-04-03] MEDS: ARTIFICIAL TEARS (POLYVINYL ALCOHOL) OPTH DROPS OS SCH ×4 (09:47→21:43)
--- NOTE | 2019-04-03 09:54 | PN ---
[facility] Progress Note (SOAP) Subjective: patient to be discharged tomorrow. 58 year old female with history of alcohol dependence and crack use disorder. She is using 1 litre of vodka per day and beers . She endorses that she needs eye informatica mdm architect every day and shaky with attempts at cessation. She uses marijuana at least $100 daily . She started smoking it at age 18. She uses crack/ccaine at age 29 and aout 2x/month. She also smokes ciggarettes at age [age] years old. She has tried heroin but last time use was 10 years ago. PMH: HTN, Asthma, MVP, Seasonal allergies. Psurg: CHolecystectomy, Umbilical Hernia repair, foot surgery, many miscarriages with D&C Psych: Bipolar, Schizophrenia. Zyprexa ambien, lamictal, gabapentin but not consistently. HOSPITAL COURSE: Patient attended groups, had 1:1 meeting with her counselor, and was seen by the psychiatric services. While in rehab, she was treated for eczema, herpes, and a stye with good results. Objective: 04/03/19 09:58 Vital Signs (72 hours) 04/01/19 04/01/19 04/01/19 00:35 03:27 06:52 Temperature 98.4 F Pulse Rate 76 Respiratory 18 18 18 Rate Blood Pressure 119/82 04/01/19 04/02/19 04/02/19 09:16 00:30 03:30 Temperature 98.5 F Pulse Rate 88 Respiratory 18 16 16 Rate Blood Pressure 111/72 04/02/19 04/02/19 04/03/19 06:40 09:22 00:43 Temperature 97.6 F Pulse Rate 71 81 Respiratory 18 18 Rate Blood Pressure 120/71 97/65 04/03/19 04/03/19 03:32 07:15 Temperature 98.4 F Pulse Rate 74 Respiratory 18 18 Rate Blood Pressure 144/84 P/E: General: no apparent distress HEENTM: normocephalic, PERRLA Neck: supple Lung: clear Heart: s1 s2 Abd: +BS MSK: full weight bearing, steady gait, full ROM Neuro; CN 2-12 intact skin: residual scars from bedbugs, Assessment: ETOH dependance Cannabis dependance cocaine use Medically stable for discharge 04/03/19 10:00 04/03/19 10:01 Plan: Patient referred to [facility] for aftercare Prescriptions sent to patient's pharmacy for home medications Encouraged to follow up with aftercare referral, advised diet, activity according to her ability to maintain health.
--- NOTE | 2019-04-03 15:19 | PN ---
[facility] Progress Note Note: Psychiatric nurse practitoner note: Patient scheduled for discharge tomorrow. A 30 day prescription of Zyprexa 7.5mg HS was electronically sent to [facility] pharmacy/[facility] pharmacy @ [address] [place], [place] [id number].
[2019-04-03] MEDS: MELATONIN 5 MG TABLETS PO PRN (21:42)
[2019-04-03] MEDS: MONTELUKAST NA 10 MG TABLET PO SCH (21:42)
[2019-04-03] MEDS: THIAMINE HCL 100 MG TABLET (FP) PO SCH (21:42)
[2019-04-03] MEDS: ESTROGENS,CONJUGATE VAGINAL CR 30 GM TUBE VG SCH (21:43)
[2019-04-03] MEDS: OLANZapine 7.5 MG TABLET PO SCH (21:44)
[2019-04-03] MEDS ORDERED: PT OWN MED DRAWER 7, Y5N ONE ×2 (21:45→21:49)
[2019-04-04] MEDS: GABAPENTIN 100 MG CAPSULE PO SCH (06:39)
[2019-04-04] MEDS ORDERED: PT OWN MED DRAWER 7, Y5N ONE ×3 (06:41→08:14)
[2019-04-04] MEDS: AMMONIUM LACTATE 12% LOTION 225 GM BOTTLE TP PRN (06:41)
[2019-04-04 07:14] VITALS: BP 117/87; PULSE 72; TEMP 98.1
--- NOTE | 2019-04-04 08:50 | DS ---
[facility] Rehab Discharge Summary - [facility] Rehab Discharge Summary Admission Date: 03/11/19 Discharge Date: 04/04/19 - History Present History: Alcohol dependence, Cannabis dependence, Cocaine dependence Additional Comments: Pt is a 58 y/o female with a hx of MUNIRA scheduled to discharge today. Pt met with her counselor and has been referred to [facility] for CD aftercare. Pertinent Past History: HTN Asthma MVP, Seasonal Allergies Cholecystectomy Umbilical Hernia Repair,Foot Surgery, Schizophrenia Bipolar d/o - Discharge Physical Exam Vital Signs: Vital Signs Temperature 98.1 F 04/04/19 07:13 Pulse Rate 72 04/04/19 07:13 Respiratory Rate 18 04/04/19 07:13 Blood Pressure 117/87 04/04/19 07:13 O2 Sat by Pulse Oximetry (%) Alert o x 3,denies s/h/i nad oob ambulating with steady gait cardiac:s1 s2,rrr lungs:cta,carlos alberto. Abdomen:+bs,soft,nt,+fatty extremities/skin:no edema;skin intact. Pertinent Admission Physical Exam Findings: Laboratory Tests 03/13/19 09:20 WBC 7.5 RBC 3.46 L Hgb 12.3 Hct 36.2 MCV 104.7 H MCH 35.6 H MCHC 34.0 RDW 13.1 Plt Count 240 MPV 9.0 Absolute Neuts (auto) 4.4 Neutrophils % 59.1 Lymphocytes % 24.8 Monocytes % 13.3 H Eosinophils % 2.4 Basophils % 0.4 Nucleated RBC % 0 - Treatment Discharge Condition: Discharge condition good Hospital Course: Rehabilitated safely and responded well attended and participated in groups and individual sessions while in treatment CD aftercare referral accepted to [facility] Pt was treated for Eczema,Herpes and Stye with good results while in rehab. - Medication Discharge Medications: Ambulatory Orders Albuterol Sulfate Inhaler - [Ventolin Hfa Inhaler -] 2 inh PO Q4H PRN 03/06/19 Ergocalciferol [Vitamin D2] 50,000 unit PO Q7D@1000 03/06/19 Gabapentin [Neurontin -] 100 mg PO Q8H 03/06/19 Lamotrigine [Lamictal -] 100 mg PO DAILY 03/06/19 Multivitamin [One-Daily Multi-Vitamin] 1 each PO DAILY 03/06/19 Olanzapine [Zyprexa -] 7.5 mg PO HS 03/06/19 Polyvinyl Alcohol [Artificial Tears] 1 drop OS QID 03/06/19 Loratadine [Claritin] 10 mg PO DAILY 03/11/19 Amlodipine Besylate [Norvasc -] 10 mg PO DAILY #14 tablet 04/03/19 Aspirin [ASA -] 81 mg PO DAILY #14 tab.chew 04/03/19 Budesonide/Formeterol Fumarate [SYMBICORT 80/4.5mcg -] 1 inh PO BID #1 inhaler 04/03/19 Montelukast Na [Singulair -] 10 mg PO HS #14 tablet 04/03/19 Olanzapine [Zyprexa -] 7.5 mg PO HS #30 tablet 04/03/19 Ranitidine HCl 150 mg PO DAILY #14 tablet 04/03/19 Triamcinolone 0.1% Ointment [Aristocort 0.1% Ointment -] 1 applic TP DAILY #1 applic 04/03/19 - Medication-Assisted Treatment (MAT) Medication-Assisted Treatment (MAT): No - Discharge Instructions Diet, activity, other medical instructions: Diet:MAGI Activity: oob ad kris Other medical instructions:follow up with CD aftercare recommendation as scheduled. follow up with primary care provider within 1-2 weeks after discharge. - Diagnosis (1) Hypertension Status: Chronic Qualifiers: Hypertension type: essential hypertension Qualified Code(s): I10 - Essential (primary) hypertension (2) Rash Status: Acute (3) Asthma Status: Chronic Qualifiers: Asthma severity: mild Asthma persistence: unspecified Asthma complication type: unspecified Qualified Code(s): J45.909 - Unspecified asthma , uncomplicated (4) Environmental allergies Status: Suspected (5) Cannabis dependence Status: Chronic (6) Nicotine dependence Status: Chronic Qualifiers: Nicotine product type: cigarettes Substance use status: uncomplicated Qualified Code(s): F17.210 - Nicotine dependence, cigarettes, uncomplicated (7) Alcohol use disorder Status: Chronic (8) Varicose veins of bilateral lower extremities with other complications Status: Chronic (9) Stye external Status: Acute Qualifiers: Laterality: right (10) Hx of herpes genitalis Status: Chronic - Follow-up Referral Minutes to complete discharge: 20 - AMA Did Patient Leave Against Medical Advice: No Additional Comments: Pt's Home Rx was sent to her pharmacy by provider Nelsy Martinez(See [facility] SOAP note for 04/03/19)
[2019-04-04] MEDS: BUDESONIDE/FORMETEROL FUMARATE 80/4.5 mcg INHALER IH SCH (09:02)
[2019-04-04] MEDS: ASPIRIN 81 MG CHEWABLE TABLETS PO SCH (09:02)
[2019-04-04] MEDS: PRENATAL VITAMINS W/ FOLIC ACID TABLET (FP) PO SCH (09:02)
[2019-04-04] MEDS: NEOMY SULF/BACITRA/POLYMYXIN B OPHTHALMIC OINTMENT 3.5 GM OU SCH (09:02)
[2019-04-04] MEDS: METHOCARBAMOL 500 MG TABLET PO SCH (09:03)
[2019-04-04] MEDS: amLODIPine BESYLATE 10 MG TABLET (FP) PO SCH (09:03)
[2019-04-04] MEDS: hydrOXYzine PAMOATE 50 MG CAPSULE (FP) PO PRN (09:03)
[2019-04-04] MEDS: valACYclovir HCL 500 MG TABLET (FP) PO SCH (09:19)
[2019-04-04] MEDS: TRIAMCINOLONE ACET 0.1% OINT 15 GM TUBE TP SCH (09:19)
[2019-04-04] MEDS: ARTIFICIAL TEARS (POLYVINYL ALCOHOL) OPTH DROPS OS SCH (09:19)
== END 2019-04-04 09:20 | disposition home or self-care (01) | DRG 772 ==
LOC: YASAS 11:31 → Y3E 11:33
PROVIDERS: ADMIT Allergy & Immunology; ATTEND Allergy & Immunology
PROC: HZ42ZZZ Group Counseling for Substance Abuse Treatment, Cognitive-Behavioral (ICD-10-PCS; principal; 2019-03-11)
DX: F10.20 Alcohol dependence, uncomplicated (principal); F14.20 Cocaine dependence, uncomplicated; F12.20 Cannabis dependence, uncomplicated; F17.210 Nicotine dependence, cigarettes, uncomplicated; F19.282 Other psychoactive substance dependence with psychoactive substance-induced sleep disorder; F25.9 Schizoaffective disorder, unspecified; F31.9 Bipolar disorder, unspecified; F43.10 Post-traumatic stress disorder, unspecified; I10 Essential (primary) hypertension; I34.1 Nonrheumatic mitral (valve) prolapse; J45.909 Unspecified asthma, uncomplicated; I83.893 Varicose veins of bilateral lower extremities with other complications; H00.012 Hordeolum externum right lower eyelid; R21 Rash and other nonspecific skin eruption; A69.0 Necrotizing ulcerative stomatitis; Z91.09 Other allergy status, other than to drugs and biological substances; Z90.49 Acquired absence of other specified parts of digestive tract; Z98.890 Other specified postprocedural states; Z88.0 Allergy status to penicillin; Z91.018 Allergy to other foods
CPT/HCPCS: 36415; 85025; 90732; G0009; J1410

== ENCOUNTER 2019-03-11 19:22 | Emergency (ER) | payer OTHER ==
[2019-03-11 19:36] VITALS: BP 130/90; PULSE 104; TEMP 97.2; BMI 32.5
[2019-03-11] MEDS ORDERED: ESTROGENS,CONJUGATE VAGINAL CR 30 GM TUBE VG ONE (21:03)
--- NOTE | 2019-03-11 21:07 | PDOC ---
Documentation entered by Lore Martinez SCRIBE, acting as scribe for Zamzam Adams MD. Zamzam Adams MD: This documentation has been prepared by the Michelle aragon Nirvannie, SCRIBE, under my direction and personally reviewed by me in its entirety. I confirm that the documentation accurately reflects all work, treatment, procedures, and medical decision making performed by me. Attending Attestation - Resident Resident Name: Sonido Solorio - ED Attending Attestation I have performed the following: I have examined & evaluated the patient, The case was reviewed & discussed with the resident, I agree w/resident's findings & plan, Exceptions are as noted - HPI HPI: 03/11/19 20:34 The patient is a 58 year old female, with a significant past medical history of HTN, uterine prolapse, substance abuse (alcohol and cannabis), Schizophrenia, PTSD, who presents to the emergency department with vaginal bleeding. Allergies: Apple, Penicillins Past surgical history: None reported. Social history: Nonsmoker. Denies EtOH use and recreational drug use. Primary Care Physician: LMP: Age 50, A6 03/11/19 20:54 - Physicial Exam PE: 03/11/19 20:55 Well-nourished well-developed 58-year-old female with a history of uterine prolapse presents with urinary retention HPI she is admitted for 30-day rehab at [facility] and she was brought in by ambulance from that facility Dr. Robertson came in to see her in the emergency department and knows of this patient's uterine prolapse. This patient has been referred to a urological surgical supplies sterilizer, Dr. Sandoval ,for this very problem but has not yet been able to follow-up 03/11/19 20:56 58 yo female p/w urinary retention head normocephalic atraumatic Very poor dentition with multiple carious teeth broken off at the gumline Lungs are clear to auscultation CVS regular rate and rhythm Abdomen distended bladder Prolapsed uterus that did spontaneously reduce when the patient laid down on her back Extremities full range of motion no deformities Skin warm and dry Neuro she is alert and conversant and ambulatory - Medical Decision Making 03/11/19 20:58 Straight cath was placed and 1000 cc of urine was obtained Patient is now very comfortable We do not have a pessary here but she should follow-up with the urological surgical supplies sterilizer 03/11/19 21:05 Dr. Robertson was present and recommended irrigating the vaginal vault with diluted Betadine which we did -a total of 1200 cc of urine were obtained Patient symptoms have resolved I did call [facility] rehab and told him that we were discharging her back to their facility
--- NOTE | 2019-03-11 21:21 | PDOC ---
History of Present Illness - General Chief Complaint: Vaginal Bleeding Stated Complaint: BLEEDING Time Seen by Provider: 03/11/19 20:11 History Source: Patient Exam Limitations: No Limitations - History of Present Illness Initial Comments: 03/11/19 21:14 58 yo female (5 spontaneous abortions, 1 planned) w/ PMH HTN, Asthma, numerous psychiatric illnesses, cervical prolapse transferred from [facility] ( alcohol detox) for vaginal bleeding, inability to urinate and uterine prolapse. As per [facility] report: "vaginal bleeding and abdominal pain worsening over the last month. Now she states she is going through 5-6 pads daily. LMP was at age 50. Admits to nonradiating lower abdominal pain worse with attempts to urinate. She states she is drinking lots of water, but is having difficulty urinating. She last had sex in November and states it was painful and so she has avoided sex since then. She also admits to bleeding from her gums and dark colored stools. She states she went to see her doctor about her prolapse, which was "not so bad " in november. Unclear what workup was done at that time." Pt given cream for vaginal drying which was the cause of bleeding due to multiple prolapses, pt ran out of cream and it is not available at [facility]. Pt states recent prolapse has been difficult to replace and has been unable to urinate since early AM Denies F/C/N/V, abdominal pain, changes in bowel habits, CP, SOB Past History - Past Medical History Allergies/Adverse Reactions: Allergies Allergy/AdvReac Type Severity Reaction Status Date / Time apple Allergy Severe Verified 03/11/19 19:36 Penicillins Allergy Severe Verified 03/11/19 19:36 Home Medications: Ambulatory Orders Albuterol Sulfate Inhaler - [Ventolin Hfa Inhaler -] 2 inh PO Q4H PRN 03/06/19 Amlodipine Besylate [Norvasc -] 10 mg PO DAILY 03/06/19 Aspirin [ASA -] 81 mg PO DAILY 03/06/19 Budesonide/Formeterol Fumarate [SYMBICORT 80/4.5mcg -] 1 inh PO BID 03/06/19 Ergocalciferol [Vitamin D2] 50,000 unit PO Q7D@1000 03/06/19 Gabapentin [Neurontin -] 100 mg PO Q8H 03/06/19 Lamotrigine [Lamictal -] 100 mg PO DAILY 03/06/19 Montelukast Na [Singulair -] 10 mg PO HS 03/06/19 Multivitamin [One-Daily Multi-Vitamin] 1 each PO DAILY 03/06/19 Olanzapine [Zyprexa -] 7.5 mg PO HS 03/06/19 Polyvinyl Alcohol [Artificial Tears] 1 drop OS QID 03/06/19 Ranitidine HCl 150 mg PO DAILY 03/06/19 Loratadine [Claritin] 10 mg PO DAILY 03/11/19 Triamcinolone 0.1% Ointment [Aristocort 0.1% Ointment -] 1 applic TP DAILY 03/11 Asthma: Yes Cardiac Disorders: No COPD: No Diabetes: No GI Disorders: No Disorders: No HTN: Yes (on meds.) Kidney Stones: No Seizures: No - Reproductive History PID: No - Psycho Social/Smoking Cessation Hx Smoking History: Never smoked Have you smoked in the past 12 months: No If you are a former smoker, when did you quit?: 2017 Hx Alcohol Use: Yes Hx Substance Use Treatment: Yes Review of Systems - Review of Systems Constitutional: Yes: See HPI HEENTM: Yes: See HPI Respiratory: Yes: See HPI Cardiac (ROS): Yes: See HPI ABD/GI: Yes: See HPI : Yes: See HPI Musculoskeletal: Yes: See HPI Integumentary: Yes: See HPI Neurological: Yes: See HPI *Physical Exam - Vital Signs Last Vital Signs Temp Pulse Resp BP Pulse Ox 97.2 F L 104 H 17 130/90 98 03/11/19 19:22 03/11/19 19:22 03/11/19 19:22 03/11/19 19:22 03/11/19 19:22 - Physical Exam General Appearance: Yes: Nourished, Appropriately Dressed. No: Apparent Distress HEENT: positive: EOMI Neck: positive: Supple. negative: Carotid bruit Respiratory/Chest: positive: Lungs Clear, Normal Breath Sounds. negative: Respiratory Distress, Accessory Muscle Use, Rapid RR, Crackles, Rales, Rhonchi, Stridor, Wheezing Cardiovascular: positive: Regular Rhythm, S1, S2, Tachycardia. negative: Edema , JVD, Murmur Vascular Pulses: Dorsalis-Pedis (R): 4+, Doralis-Pedis (L): 4+ Female Pelvic Exam: positive: normal external exam, cervical os closed, normal adnexa. negative: CMT, discharge, Bartholin mass, adnexal tenderness, vaginal bleeding Gastrointestinal/Abdominal: positive: Distended, Other (US bedside scan shows 800 ml ). negative: Pulsatile Mass, Guarding, Rebound, Tenderness Musculoskeletal: positive: Normal Inspection. negative: CVA Tenderness Extremity: positive: Normal Inspection, Normal Range of Motion Integumentary: positive: Normal Color, Dry, Warm Neurologic: positive: Fully Oriented, Alert, Normal Mood/Affect Medical Decision Making - Medical Decision Making 03/11/19 21:22 58 yo female (5 spontaneous abortions, 1 planned) w/ PMH HTN, Asthma, numerous psychiatric illnesses, cervical prolapse transferred from [facility] ( alcohol detox) for vaginal bleeding, inability to urinate and uterine prolapse. As per [facility] report: "vaginal bleeding and abdominal pain worsening over the last month. Now she states she is going through 5-6 pads daily. LMP was at age 50. Admits to nonradiating lower abdominal pain worse with attempts to urinate. She states she is drinking lots of water, but is having difficulty urinating. She last had sex in November and states it was painful and so she has avoided sex since then. She also admits to bleeding from her gums and dark colored stools. She states she went to see her doctor about her prolapse, which was "not so bad " in november. Unclear what workup was done at that time." Pt given cream for vaginal drying which was the cause of bleeding due to multiple prolapses, pt ran out of cream and it is not available at [facility]. Pt states recent prolapse has been difficult to replace and has been unable to urinate since early AM Denies F/C/N/V, abdominal pain, changes in bowel habits, CP, SOB Discussed case with Drt. Pagan, examined pt at the bedside with me, pt uterine prolapse very positional and when supine, prolapse reduces. Straight cath patient 1250 ml drained, pt feels much better Pt suppose to follow with Dr. Sandoval (OB/URO) needs to f/u with him for definitive care and likely pessary Pt safe for DC back to [facility] Given estrogen cream to go home with and instructions on how to place uterus back Discharge - Discharge Information Problems reviewed: Yes Clinical Impression/Diagnosis: Uterine prolapse Condition: Fair Disposition: HOME - Admission No - Follow up/Referral Referrals: Herrera Sandoval [Staff Physician] - - Patient Discharge Instructions Patient Printed Discharge Instructions: DI for Uterine Prolapse, DI for Urinary Retention in Women Additional Instructions: Please use the cream provided for vaginal dryness and reduction of bleeding. See the OB doctor, Dr. Sandoval as soon as possible for definitive care. Return to the ER for new or concerning problems. Thank you - Post Discharge Activity
[2019-03-11 21:44] LABS: PH,URINE 5.5 (5.0-8.0); URINE APPEARANCE CLEAR; URINE BILIRUBIN NEGATIVE (NEGATIVE); URINE COLOR YELLOW; URINE GLUCOSE (UA) NEGATIVE (NEGATIVE); URINE KETONE NEGATIVE (NEGATIVE); URINE LEUK ESTERASE NEGATIVE (NEGATIVE); URINE NITRITE NEGATIVE (NEGATIVE); URINE PROTEIN NEGATIVE (NEGATIVE); URINE UROBILINOGEN 0.2 mg/dL (0.2-1.0)
--- NOTE | 2019-03-13 09:34 | CONSULT ---
[facility] Psychiatric Consult - Data Date of interview: 03/13/19 Admission source: [facility] Substance Abuse History: Smoking Cessation. Smoking history: Former smoker. Have you smoked in the past 12 months: No. If you are a former smoker, when did you quit?: 2017. Hx Chewing Tobacco Use: No. Initiated information on smoking cessation: No. - Substances abused. Alcohol. Substance route: Oral. Frequency: Daily. Amount used: 1 liter vodka/ 6pk and up of beer. Age of first use: 18. Date of last use: 03/06/19. Marijuana/Hashish. Substance route: Inhalation. Frequency: Daily. Amount used: 10 blunts. Age of first use: 18. Date of last use: 03/06/19
== END 2019-03-12 00:16 | disposition home or self-care (01) ==
LOC: JER 19:22
DX: N81.4 Uterovaginal prolapse, unspecified (principal); I10 Essential (primary) hypertension; J45.909 Unspecified asthma, uncomplicated; F10.20 Alcohol dependence, uncomplicated; Z88.0 Allergy status to penicillin; Z91.018 Allergy to other foods
CPT/HCPCS: 81003; 87086; 99282-25; J1410

== ENCOUNTER 2020-07-09 12:15 | Inpatient (IN) | payer OTHER ==
[2020-07-09 13:49] VITALS: BMI 36.9
[2020-07-09] MEDS ORDERED: MAGNESIUM HYDROX 2400MG/30ML ORAL SUSPENSION 30 ML CUP PO PRN (15:33)
[2020-07-09] MEDS ORDERED: MENTHOL/PHENOL 1 EACH UD MM PRN (15:33)
[2020-07-09] MEDS ORDERED: MAG HYDROX/AL HYDROX/SIMETH 30 ML UNIT-DOSE CUP PO PRN (15:33)
[2020-07-09] MEDS ORDERED: IBUPROFEN 400 MG TABLET (FP) PO PRN (15:33)
[2020-07-09] MEDS ORDERED: MAGNESIUM CITRATE 300 ML BOTTLE PO PRN (15:33)
[2020-07-09] MEDS ORDERED: BISMUTH SUBSALICYLATE 524 MG/30 ML PO PRN (15:33)
[2020-07-09] MEDS ORDERED: METHOCARBAMOL 500 MG TABLET PO PRN (15:33)
[2020-07-09] MEDS ORDERED: ONDANSETRON *ODT* 4 MG TABLET SL PRN (15:33)
[2020-07-09] MEDS ORDERED: ACETAMINOPHEN 325 MG TABLET (FP) PO PRN (15:33)
[2020-07-09] MEDS ORDERED: TRIAMCINOLONE ACET 0.1% OINT 15 GM TUBE TP PRN (15:35)
[2020-07-09] MEDS ORDERED: ALBUTEROL SO4 HFA INHALER IH PRN (15:35)
[2020-07-09] MEDS ORDERED: diazePAM 5 MG TABLET PO PRN (15:35)
[2020-07-09] MEDS: diazePAM 5 MG TABLET PO SCH ×2 (17:45→22:27)
[2020-07-09] MEDS: ARTIFICIAL TEARS (POLYVINYL ALCOHOL) OPTH DROPS OS SCH ×2 (17:47→22:26)
[2020-07-09] MEDS ORDERED: MELATONIN 5 MG TABLETS PO SCH (22:00)
[2020-07-09] MEDS: MONTELUKAST NA 10 MG TABLET PO SCH (22:29)
[2020-07-09] MEDS: THIAMINE HCL 100 MG TABLET (FP) PO SCH (22:29)
[2020-07-09] MEDS: BUDESONIDE/FORMETEROL FUMARATE 80/4.5 mcg INHALER IH SCH ×2 (22:29→22:41)
[2020-07-09] MEDS: AMMONIUM LACTATE 12% LOTION 225 GM BOTTLE TP SCH (23:26)
[2020-07-10] MEDS: diazePAM 5 MG TABLET PO SCH ×4 (05:55→22:25)
[2020-07-10] MEDS ORDERED: ESTRADIOL APPL VG SCH (10:00)
[2020-07-10] MEDS: ASPIRIN 81 MG CHEWABLE TABLETS PO SCH (10:13)
[2020-07-10] MEDS: PRENATAL VITAMINS W/ FOLIC ACID TABLET (FP) PO SCH (10:13)
[2020-07-10] MEDS: FAMOTIDINE 20 MG TABLET PO SCH (10:13)
[2020-07-10] MEDS: amLODIPine BESYLATE 5 MG TABLET (FP) PO SCH (10:13)
[2020-07-10] MEDS: predniSONE 20 MG TABLET (UD) PO SCH (10:13)
[2020-07-10] MEDS: BUDESONIDE/FORMETEROL FUMARATE 80/4.5 mcg INHALER IH SCH ×2 (10:14→22:22)
[2020-07-10] MEDS: ARTIFICIAL TEARS (POLYVINYL ALCOHOL) OPTH DROPS OS SCH ×4 (10:14→22:24)
[2020-07-10] MEDS: EMTRICITABINE/TENOFOV ALAFENAM (DESCOVY) TABLET PO SCH (10:18)
[2020-07-10 11:22] LABS: HEMATOCRIT 39.5 % (32.4-45.2); HEMOGLOBIN 13.5 GM/dL (10.7-15.3); MCH 34.6 pg (25.7-33.7); MCHC 34.2 g/dl (32.0-36.0); MEAN CELL VOLUME 101.4 fl (80-96); MEAN PLT VOLUME 8.9 fl (7.5-11.1); PLATELET COUNT 333 K/MM3 (134-434); RBC 3.89 M/mm3 (3.60-5.2); RDW 13.2 % (11.6-15.6); WHITE BLOOD COUNT 10.6 K/mm3 (4.0-10.0)
[2020-07-10 11:23] LABS: ALBUMIN 3.4 g/dl (3.4-5.0); BLOOD UREA NITROGEN 8.1 mg/dL (7-18); CALCIUM 9.2 mg/dL (8.5-10.1)
[2020-07-10 11:26] LABS: CREATININE 0.5 mg/dL (0.55-1.3)
[2020-07-10 11:29] LABS: BILIRUBIN,TOTAL 0.4 mg/dL (0.2-1); TOT PROT 7.5 g/dl (6.4-8.2)
[2020-07-10] MEDS: AMMONIUM LACTATE 12% LOTION 225 GM BOTTLE TP SCH (17:38)
[2020-07-10] MEDS: THIAMINE HCL 100 MG TABLET (FP) PO SCH (22:22)
[2020-07-10] MEDS: MONTELUKAST NA 10 MG TABLET PO SCH (22:23)
[2020-07-10] MEDS: MELATONIN 5 MG TABLETS PO PRN (22:28)
[2020-07-10] MEDS: lamoTRIgine 25 MG TABLET PO SCH (23:53)
[2020-07-10] MEDS: OLANZapine 7.5 MG TABLET PO SCH (23:54)
[2020-07-11] MEDS: diazePAM 5 MG TABLET PO SCH ×3 (06:33→21:52)
[2020-07-11] MEDS ORDERED: ERGOCALCIFEROL (VIT D2) 50,000 UNIT (1.25 MG) CAPSULE PO SCH (10:00)
[2020-07-11] MEDS: BUDESONIDE/FORMETEROL FUMARATE 80/4.5 mcg INHALER IH SCH ×2 (10:28→21:51)
[2020-07-11] MEDS: ARTIFICIAL TEARS (POLYVINYL ALCOHOL) OPTH DROPS OS SCH ×4 (10:28→21:51)
[2020-07-11] MEDS: hydrOXYzine PAMOATE 25 MG CAPSULE (FP) PO PRN ×2 (10:30→21:53)
[2020-07-11] MEDS: FAMOTIDINE 20 MG TABLET PO SCH (10:30)
[2020-07-11] MEDS: amLODIPine BESYLATE 5 MG TABLET (FP) PO SCH (10:30)
[2020-07-11] MEDS: ASPIRIN 81 MG CHEWABLE TABLETS PO SCH (10:30)
[2020-07-11] MEDS: predniSONE 20 MG TABLET (UD) PO SCH (10:31)
[2020-07-11] MEDS: PRENATAL VITAMINS W/ FOLIC ACID TABLET (FP) PO SCH (10:31)
[2020-07-11] MEDS: EMTRICITABINE/TENOFOV ALAFENAM (DESCOVY) TABLET PO SCH (10:33)
[2020-07-11] MEDS: ACETAMINOPHEN 325 MG TABLET (FP) PO PRN (13:30)
[2020-07-11] MEDS: AMMONIUM LACTATE 12% LOTION 225 GM BOTTLE TP SCH (17:51)
[2020-07-11] MEDS: THIAMINE HCL 100 MG TABLET (FP) PO SCH (21:51)
[2020-07-11] MEDS: MONTELUKAST NA 10 MG TABLET PO SCH (21:52)
[2020-07-11] MEDS: lamoTRIgine 25 MG TABLET PO SCH (21:53)
[2020-07-11] MEDS: CLINDAMYCIN HCL 150 MG CAPSULE (FP) PO SCH (21:55)
[2020-07-11] MEDS: OLANZapine 7.5 MG TABLET PO SCH (21:57)
[2020-07-11] MEDS ORDERED: CLINDAMYCIN HCL 300 MG CAPSULE PO SCH (22:00)
[2020-07-11] MEDS: MELATONIN 5 MG TABLETS PO PRN (22:00)
[2020-07-12] MEDS: CLINDAMYCIN HCL 150 MG CAPSULE (FP) PO SCH ×3 (05:36→22:46)
[2020-07-12] MEDS: diazePAM 5 MG TABLET PO SCH ×2 (05:37→17:44)
[2020-07-12] MEDS: ASPIRIN 81 MG CHEWABLE TABLETS PO SCH (10:21)
[2020-07-12] MEDS: FAMOTIDINE 20 MG TABLET PO SCH (10:21)
[2020-07-12] MEDS: EMTRICITABINE/TENOFOV ALAFENAM (DESCOVY) TABLET PO SCH (10:22)
[2020-07-12] MEDS: PRENATAL VITAMINS W/ FOLIC ACID TABLET (FP) PO SCH (10:22)
[2020-07-12] MEDS: BUDESONIDE/FORMETEROL FUMARATE 80/4.5 mcg INHALER IH SCH ×2 (10:22→22:46)
[2020-07-12] MEDS: amLODIPine BESYLATE 5 MG TABLET (FP) PO SCH (10:22)
[2020-07-12] MEDS: ARTIFICIAL TEARS (POLYVINYL ALCOHOL) OPTH DROPS OS SCH ×4 (10:23→22:47)
[2020-07-12] MEDS: hydrOXYzine PAMOATE 25 MG CAPSULE (FP) PO PRN ×2 (10:25→22:59)
[2020-07-12] MEDS: AMMONIUM LACTATE 12% LOTION 225 GM BOTTLE TP SCH (17:44)
[2020-07-12] MEDS: MONTELUKAST NA 10 MG TABLET PO SCH (22:47)
[2020-07-12] MEDS: THIAMINE HCL 100 MG TABLET (FP) PO SCH (22:49)
[2020-07-12] MEDS: OLANZapine 7.5 MG TABLET PO SCH (22:49)
[2020-07-12] MEDS: MELATONIN 5 MG TABLETS PO PRN (22:51)
[2020-07-12] MEDS: lamoTRIgine 25 MG TABLET PO SCH (23:16)
[2020-07-13] MEDS ORDERED: diazePAM 5 MG TABLET PO ONE (06:00)
[2020-07-13] MEDS: CLINDAMYCIN HCL 150 MG CAPSULE (FP) PO SCH ×3 (06:10→22:07)
[2020-07-13] MEDS: ARTIFICIAL TEARS (POLYVINYL ALCOHOL) OPTH DROPS OS SCH ×4 (10:40→22:07)
[2020-07-13] MEDS: amLODIPine BESYLATE 5 MG TABLET (FP) PO SCH (10:41)
[2020-07-13] MEDS: PRENATAL VITAMINS W/ FOLIC ACID TABLET (FP) PO SCH (10:41)
[2020-07-13] MEDS: ASPIRIN 81 MG CHEWABLE TABLETS PO SCH (10:41)
[2020-07-13] MEDS: FAMOTIDINE 20 MG TABLET PO SCH (10:41)
[2020-07-13] MEDS: BUDESONIDE/FORMETEROL FUMARATE 80/4.5 mcg INHALER IH SCH ×2 (10:43→22:07)
[2020-07-13] MEDS: EMTRICITABINE/TENOFOV ALAFENAM (DESCOVY) TABLET PO SCH (12:54)
[2020-07-13] MEDS: hydrOXYzine PAMOATE 25 MG CAPSULE (FP) PO PRN (13:12)
[2020-07-13] MEDS: AMMONIUM LACTATE 12% LOTION 225 GM BOTTLE TP SCH (18:22)
[2020-07-13] MEDS: MONTELUKAST NA 10 MG TABLET PO SCH (22:07)
[2020-07-13] MEDS: OLANZapine 7.5 MG TABLET PO SCH (22:07)
[2020-07-13] MEDS: THIAMINE HCL 100 MG TABLET (FP) PO SCH (22:07)
[2020-07-13] MEDS: lamoTRIgine 25 MG TABLET PO SCH (22:07)
[2020-07-14] MEDS ORDERED: MASKS NR ONE (08:13)
[2020-07-14] MEDS: ARTIFICIAL TEARS (POLYVINYL ALCOHOL) OPTH DROPS OS SCH (10:28)
[2020-07-14] MEDS: ASPIRIN 81 MG CHEWABLE TABLETS PO SCH (10:29)
[2020-07-14] MEDS: amLODIPine BESYLATE 5 MG TABLET (FP) PO SCH (10:29)
[2020-07-14] MEDS: EMTRICITABINE/TENOFOV ALAFENAM (DESCOVY) TABLET PO SCH (10:29)
[2020-07-14] MEDS: PRENATAL VITAMINS W/ FOLIC ACID TABLET (FP) PO SCH (10:29)
[2020-07-14] MEDS: FAMOTIDINE 20 MG TABLET PO SCH (10:29)
[2020-07-14] MEDS: BUDESONIDE/FORMETEROL FUMARATE 80/4.5 mcg INHALER IH SCH (10:29)
[2020-07-14] MEDS: hydrOXYzine PAMOATE 25 MG CAPSULE (FP) PO PRN (10:31)
[2020-07-14] MEDS: ACETAMINOPHEN 325 MG TABLET (FP) PO PRN (10:40)
[2020-07-14 13:19] VITALS: BP 114/78; PULSE 93; TEMP 98.2
== END 2020-07-14 13:50 | disposition home or self-care (01) | DRG 774 ==
LOC: YASAS 12:15 → Y6N 15:54
PROVIDERS: ADMIT Allergy & Immunology; ATTEND Allergy & Immunology
PROC: HZ2ZZZZ Detoxification Services for Substance Abuse Treatment (ICD-10-PCS; principal; 2020-07-09)
DX: F10.230 Alcohol dependence with withdrawal, uncomplicated (principal); F14.20 Cocaine dependence, uncomplicated; F12.20 Cannabis dependence, uncomplicated; F19.282 Other psychoactive substance dependence with psychoactive substance-induced sleep disorder; F25.9 Schizoaffective disorder, unspecified; F31.9 Bipolar disorder, unspecified; F43.10 Post-traumatic stress disorder, unspecified; F41.9 Anxiety disorder, unspecified; Z21 Asymptomatic human immunodeficiency virus [HIV] infection status; G62.9 Polyneuropathy, unspecified; I10 Essential (primary) hypertension; I34.1 Nonrheumatic mitral (valve) prolapse; J44.9 Chronic obstructive pulmonary disease, unspecified; J45.20 Mild intermittent asthma, uncomplicated; K21.9 Gastro-esophageal reflux disease without esophagitis; L30.9 Dermatitis, unspecified; A53.0 Latent syphilis, unspecified as early or late; Z62.810 Personal history of physical and sexual abuse in childhood; Z91.410 Personal history of adult physical and sexual abuse; Z87.891 Personal history of nicotine dependence
CPT/HCPCS: 36415; 80053; 85027; 86593; 86780; C9803; U0003; U0005